=== PATIENT | female | born 1945 | race Asian ===

== ENCOUNTER 2018-05-01 11:43 | Inpatient (IN) | payer MEDICARE ==
[~2018-05-01] VITALS: Ht 160 cm; Wt 61.7 kg
--- NOTE | 2018-05-01 11:54 | Emergency Room Report ---
History of Present Illness General Chief Complaint: Chest Pain Source: Patient, EMS Present Illness HPI Patient is a 73-year-old female presented after intermittent chest pain for 4 days. Patient reports having recent injury. She reports having some increased difficulty breathing. She states that she been having chest tightness. This was relieved after paramedics gave her aspirin and nitroglycerin.She reports having some low back pain as well as right-sided leg pain after recent injury. Allergies: Coded Allergies: No Known Allergies (Unverified , 05/01/18) Patient History Past Medical History: see triage record Last Menstrual Period: N/A Reviewed Nursing Documentation: PMH: Agreed; PSxH: Agreed Nursing Documentation-PMH Past Medical History: No History, Except For Hx Pacemaker: No - HYPERCHOLESTEROLEMIA Review of Systems All Other Systems: negative except mentioned in HPI Physical Exam Vital Signs Date Time Temp Pulse Resp B/P (MAP) Pulse Ox O2 Delivery O2 Flow Rate FiO2 05/01/18 11:43 98.6 82 18 150/94 98 Room Air Sp02 EP Interpretation: reviewed, normal General Appearance: normal inspection, well appearing, no apparent distress, alert, GCS 15 Head: atraumatic ENT: normal ENT inspection, hearing grossly normal, normal voice Neck: normal inspection, full range of motion, supple, no bony tend Respiratory: normal inspection, lungs clear, normal breath sounds, no respiratory distress, no retraction, no wheezing Cardiovascular #1: regular rate, rhythm, no edema Gastrointestinal: normal bowel sounds, non tender, soft, no guarding, no hernia , tenderness - mid epigastric Genitourinary: no CVA tenderness Musculoskeletal: normal inspection, back normal, normal range of motion Neurologic: normal inspection, alert, oriented x3, responsive, cnc technician III-XII nml as tested, speech normal Psychiatric: normal inspection, judgement/insight normal, mood/affect normal Skin: normal inspection, normal color, no rash Medical Decision Making Diagnostic Impression: Primary Impression: Chest pain Additional Impression: ACS (acute coronary syndrome) ER Course Patient presents with chest pain. Differential diagnosis included but was not limited to acute coronary syndrome, pulmonary embolism, pneumonia, aortic dissection, shingles, pneumothorax, aortic dissection, esophageal rupture, pericarditis. Because of complexity of patient's case laboratory testing and imaging studies were ordered. EKG interpreted by me showed normal sinus rhythm without acute ST changes. Patient is noted to have inverted T waves. Patient' s initial laboratory testing was unremarkable. Patient was noted to have been pain-free in the emergency department after aspirin and nitroglycerin by paramedics. Dr. Reynaldo Hartmann was contacted for inpatient management due to panel physician Labs Test 05/01/18 12:03 05/02/18 05:50 05/03/18 05:52 Total Creatine Kinase 54 U/L (26-308) Creatine Kinase MB 0.5 NG/ML (0.0-3.6) Creatine Kinase MB Relative Index 0.9 Pro-B-Type Natriuretic Peptide 85 pg/mL (0-125) Lipase 191 U/L (73-393) Prothrombin Time 10.0 SEC (9.30-11.50) Prothromb Time International Ratio 0.9 (0.9-1.1) Activated Partial Thromboplast Time 27 SEC (23-33) Troponin I 0.000 ng/mL (0.000-0.056) C-Reactive Protein, Quantitative < 0.4 mg/dL (0.00-0.90) Triglycerides Level 62 MG/DL (30-150) Cholesterol Level 156 MG/DL (< 200) LDL Cholesterol 71 mg/dL (<100) HDL Cholesterol 76 MG/DL (40-60) Cholesterol/HDL Ratio 2.1 (3.3-4.4) Thyroid Stimulating Hormone (TSH) 1.669 uiU/mL (0.358-3.740) White Blood Count 5.4 K/UL (4.8-10.8) Red Blood Count 4.30 M/UL (4.20-5.40) Hemoglobin 13.8 G/DL (12.0-16.0) Hematocrit 40.2 % (37.0-47.0) Mean Corpuscular Volume 93 FL (80-99) Mean Corpuscular Hemoglobin 32.0 PG (27.0-31.0) Mean Corpuscular Hemoglobin Concent 34.2 G/DL (32.0-36.0) Red Cell Distribution Width 11.1 % (11.6-14.8) Platelet Count 254 K/UL (150-450) Mean Platelet Volume 6.5 FL (6.5-10.1) Neutrophils (%) (Auto) 42.3 % (45.0-75.0) Lymphocytes (%) (Auto) 44.4 % (20.0-45.0) Monocytes (%) (Auto) 9.4 % (1.0-10.0) Eosinophils (%) (Auto) 2.8 % (0.0-3.0) Basophils (%) (Auto) 1.1 % (0.0-2.0) Sodium Level 140 MMOL/L (136-145) Potassium Level 3.6 MMOL/L (3.5-5.1) Chloride Level 106 MMOL/L (98-107) Carbon Dioxide Level 27 MMOL/L (21-32) Anion Gap 8 mmol/L (5-15) Blood Urea Nitrogen 17 mg/dL (7-18) Creatinine 0.8 MG/DL (0.55-1.30) Estimat Glomerular Filtration Rate mL/min (>60) Glucose Level 84 MG/DL (74-106) Calcium Level 9.4 MG/DL (8.5-10.1) Phosphorus Level 3.8 MG/DL (2.5-4.9) Magnesium Level 2.3 MG/DL (1.8-2.4) Total Bilirubin 0.7 MG/DL (0.2-1.0) Aspartate Amino Transf (AST/SGOT) 18 U/L (15-37) Alanine Aminotransferase (ALT/SGPT) 28 U/L (12-78) Alkaline Phosphatase 63 U/L (46-116) Total Protein 7.2 G/DL (6.4-8.2) Albumin 3.6 G/DL (3.4-5.0) Globulin 3.6 g/dL Albumin/Globulin Ratio 1.0 (1.0-2.7) EKG Diagnostic Results Rate: normal Rhythm: NSR ST Segments: other - t wave inversion precordial leads Rhythm Strip Diag. Results EP Interpretation: yes Rhythm: NSR, no PVC's, no ectopy Chest X-Ray Diagnostic Results Chest X-Ray Diagnostic Results : Chest X-Ray Ordered: Yes # of Views/Limited/Complete: 1 View Indication: Chest Pain EP Interpretation: No Interpretation: no consolidation, no effusion, no acute cardiopulmonary disease Impression: No acute disease Electronically Signed by: Electronically signed by Dr. Darryn Salas M.D. Last Vital Signs Date Time Temp Pulse Resp B/P (MAP) Pulse Ox O2 Delivery O2 Flow Rate FiO2 05/01/18 11:43 98.6 82 18 150/94 98 Room Air Status: improved Disposition: ADMITTED INPATIENT Condition: Stable Darryn Salas MD May 01, 2018 11:54
--- NOTE | 2018-05-01 12:05 | NUR ---
ED Nurse Note: patient was brought in by RA from urgent care, complaining of chest pain for 4 days. AAO x 4, skin is dry intact.
[2018-05-01 12:36] VITALS: BP 125/95
[2018-05-01 12:56] LABS: EOSINOPHILS % (AUTO) 0.8 % (0.0-3.0); HEMATOCRIT 43.7 % (37.0-47.0); HEMOGLOBIN 14.6 G/DL (12.0-16.0); LYMPHOCYTES % (AUTO) 40.6 % (20.0-45.0); MEAN CORPUSCULAR VOLUME 94 FL (80-99); MONOCYTES % (AUTO) 8.5 % (1.0-10.0); NEUTROPHILS % (AUTO) 49.1 % (45.0-75.0); PLATELET COUNT 272 K/UL (150-450); RED BLOOD COUNT 4.65 M/UL (4.20-5.40); WHITE BLOOD COUNT 7.9 K/UL (4.8-10.8)
[2018-05-01 13:02] LABS: ANION GAP 6 mmol/L (5-15); BLOOD UREA NITROGEN 13 mg/dL (7-18); CALCIUM 10.9 MG/DL (8.5-10.1); CARBON DIOXIDE 32 MMOL/L (21-32); CHLORIDE 102 MMOL/L (98-107); CREATININE 0.8 MG/DL (0.55-1.30); SODIUM 140 MMOL/L (136-145)
[2018-05-01 13:11] LABS: ALANINE AMINOTRANSFERASE 34 U/L (12-78); ALBUMIN 4.2 G/DL (3.4-5.0); ALKALINE PHOSPHATASE 79 U/L (46-116); ASPARTATE AMINO TRANSFERASE 24 U/L (15-37); BILIRUBIN,TOTAL 0.7 MG/DL (0.2-1.0); CKMB 0.5 NG/ML (0.0-3.6); CREATINE KINASE 54 U/L (26-308)
[2018-05-01 14:30] VITALS: BP 157/91
--- NOTE | 2018-05-01 14:30 | NUR ---
ED Nurse Note: Patient resting in bed comfortably. Reports no CP, SOB or dyspnea. Provided bedpan. Bed in lowest position.
[2018-05-01] MEDS ORDERED: ATORVASTATIN CA20 MG ORAL (15:23)
[2018-05-01] MEDS ORDERED: CALCIUM500 M3 PO (15:23)
[2018-05-01] MEDS ORDERED: ASPIRIN81 MG ORAL (15:23)
[2018-05-01] MEDS ORDERED: AMLODIPINE BESYL5 MG ORAL (15:23)
--- NOTE | 2018-05-01 16:13 | Diagnostic Imaging Report ---
Indication: Chest pain Technique: One view of the chest Comparison: none Findings: No acute infiltrates, effusions, or congestion. Tortuous calcified aorta. Normal heart size. Upper mediastinum unremarkable. Impression: No acute process.
[2018-05-01] MEDS ORDERED: Nitroglycerin Subl 0.4mg tab SL PRN (16:15)
[2018-05-01] MEDS ORDERED: Enalaprilat 2.5mg/2ml Inj IV PRN (16:15)
[2018-05-01] MEDS ORDERED: dilTIAZem HCl 25mg/5ml Inj IV PRN (16:15)
[2018-05-01] MEDS ORDERED: Ketorolac 30mg Inj IV PRN (16:15)
[2018-05-01] MEDS ORDERED: Miralax 17gm pkt ORAL PRN (16:15)
[2018-05-01] MEDS ORDERED: Morphine Sulfate 2mg/ml Inj(IV/IM USE ONLY) IVP PRN (16:15)
[2018-05-01] MEDS ORDERED: Albuterol/Ipratropium 3ml neb HHN PRN (16:15)
--- NOTE | 2018-05-01 16:20 | NUR ---
ED Nurse Note: Attempted to give report to telemetry unit. Nurse not available at this time.
[2018-05-01 16:40] VITALS: BP 147/92
--- NOTE | 2018-05-01 17:15 | NUR ---
NURSE NOTES: Received report from GABE sousa. Pt is alert and oriented X4. Pt has an unsteady gate due to a fall. Bed is in lowest position, side rails up X2, and call light is within reach. WIll continue to monitor
--- NOTE | 2018-05-01 19:30 | NUR ---
NURSE NOTES: Report received from Amira BERNAL. Pt is resting in bed in stable condition. Pt is awake, alert, and oriented x4. Pt is on room air and breathing is even and unlabored. No acute distress noted. Pt is reporting 3/10 epigastric pain and headache, reporting this as chief complaint for coming to hospital. IV site is asymptomatic, patent, and intact. Bed placed in lowest position with brake engaged, side rails up x3, and bed alarm on. Call light and side table placed within reach. Will continue to monitor.
--- NOTE | 2018-05-01 19:44 | NUR ---
HAND-OFF: Report given to GABE Bates. Pt claudia.
[2018-05-01 20:00] VITALS: BP 112/75
[2018-05-01] MEDS: Heparin 5000 units/ml inj SUBQ SCH (21:00)
[2018-05-02] VITALS: BP 101/62
[2018-05-02 04:00] VITALS: BP 105/65
[2018-05-02 07:08] LABS: INR 0.9 (0.9-1.1)
--- NOTE | 2018-05-02 07:19 | NUR ---
HAND-OFF: Report given to Amira BERNAL. Pt is resting in bed in stable condition. No acute distress noted. Endorsed plan of care.
[2018-05-02 07:23] LABS: BASOPHILS % (AUTO) 1.3 % (0.0-2.0); EOSINOPHILS % (AUTO) 2.3 % (0.0-3.0); HEMATOCRIT 42.2 % (37.0-47.0); HEMOGLOBIN 14.5 G/DL (12.0-16.0); LYMPHOCYTES % (AUTO) 44.5 % (20.0-45.0); MEAN CORPUSCULAR VOLUME 94 FL (80-99); MONOCYTES % (AUTO) 9.9 % (1.0-10.0); NEUTROPHILS % (AUTO) 42.1 % (45.0-75.0); PLATELET COUNT 261 K/UL (150-450); RED CELL DISTRIBUTION WIDTH 11.4 % (11.6-14.8); WHITE BLOOD COUNT 6.1 K/UL (4.8-10.8)
--- NOTE | 2018-05-02 07:34 | NUR ---
NURSE NOTES: Received report from GABE Bates. Bed is in lowest position, side rails up X2, and call light is within reach. Will continue to monitor.
[2018-05-02 07:50] LABS: CHOLESTEROL 156 MG/DL (< 200); HDL CHOLESTEROL 76 MG/DL (40-60); TRIGLYCERIDES 62 MG/DL (30-150)
[2018-05-02 08:00] VITALS: BP 105/60
--- NOTE | 2018-05-02 08:21 | NUR ---
CASE MANAGEMENT:REVIEW 73YR OLD MALE BIBA FROM URGENT CARE CC: CHEST PAIN SI: CHEST PAIN 98.5 82 18 150/94 98% ON RA K-3.0 TROPONIN(-) IS: NTG X1 GIVEN BY EMS ASA PO X1 GIVEN BY EMS KCL 40MEQ CHEST XRAY : TO TELEMETRY PLAN: SERIAL TROPONIN 2DECHO PT EVAL INTERQUAL
[2018-05-02] MEDS: Heparin 5000 units/ml inj SUBQ SCH ×2 (09:00→21:00)
[2018-05-02] MEDS: Aspirin Baby 81mg ORAL SCH (09:16)
[2018-05-02 12:00] VITALS: BP 142/90
--- NOTE | 2018-05-02 13:05 | NUR ---
NURSE NOTES: Received report from GABE Collier. Patient is awake and oriented x4. No signs and symptoms of acute distress noted at this time. No SOB ion room air. Bed in lowest position with two side rails up, break engaged. Call light and bed side table within reach. Will continue to monitor and follow the plan of care.
--- NOTE | 2018-05-02 13:30 | NUR ---
NURSE NOTES: Doctor Shahbaz is aware of low Potassium level.
[2018-05-02] MEDS ORDERED: Isovue-300 100ml vial INJ PRN (14:00)
--- NOTE | 2018-05-02 14:00 | NUR ---
P.T Note: P.T evaluation completed and treatment initiated. Please refer to P.T evaluation for current functional status. Pt reports c/o increased pain on her R knee aggravated by movement and WB which limits her mobility and ambulation ability. Pt currently require SBA and verbal cues for bed mobility , transfers and gait/ambulation activities . Pt also needed FWW to alleviate pain and antalgia on her R knee upon WB and maintain ambulatory balance and posture as well as safety. Pt will benefit from skilled P.T service to address safety with transfers and gait/ambulation activities for return to PLOF. Recommend DC to home with FWW to use at home for safety until pain on the R knee subsides and patient becomes stable. Thank you for this referral.
--- NOTE | 2018-05-02 14:05 | History & Physical ---
History and Physical History & Physicial Reynaldo Hartmann MD May 02, 2018 14:05
--- NOTE | 2018-05-02 14:12 | Cardiac Electrophysiology PN ---
Subjective Subjective [id number] Objective Last 24 Hour Vital Signs Date Time Temp Pulse Resp B/P (MAP) Pulse Ox O2 Delivery O2 Flow Rate FiO2 05/02/18 12:00 82 05/02/18 12:00 98.2 76 18 142/90 (107) 100 05/02/18 09:00 Room Air 05/02/18 09:00 72 105/60 05/02/18 08:08 72 19 Room Air 21 05/02/18 08:00 72 05/02/18 08:00 97.9 72 19 105/60 (75) 98 05/02/18 04:00 61 05/02/18 04:00 98.2 63 18 105/65 (78) 96 05/02/18 00:00 97.8 67 18 101/62 (75) 98 05/02/18 00:00 66 05/01/18 21:00 Room Air 05/01/18 20:00 97.2 74 18 112/75 (87) 97 05/01/18 20:00 78 05/01/18 18:46 Room Air 05/01/18 17:22 97.0 82 15 137/93 97 Room Air 05/01/18 16:40 98.3 77 18 147/92 100 Room Air 05/01/18 14:30 82 16 157/91 99 Intake and Output 05/01/18 05/02/18 19:00 07:00 Intake Total 120 ml Balance 120 ml Intake Oral 120 ml # Voids 1 1 # Bowel Movements 1 Laboratory Tests Test 05/01/18 19:30 05/02/18 05:50 Troponin I 0.000 ng/mL (0.000-0.056) 0.000 ng/mL (0.000-0.056) White Blood Count 6.1 K/UL (4.8-10.8) Red Blood Count 4.50 M/UL (4.20-5.40) Hemoglobin 14.5 G/DL (12.0-16.0) Hematocrit 42.2 % (37.0-47.0) Mean Corpuscular Volume 94 FL (80-99) Mean Corpuscular Hemoglobin 32.2 PG (27.0-31.0) H Mean Corpuscular Hemoglobin Concent 34.3 G/DL (32.0-36.0) Red Cell Distribution Width 11.4 % (11.6-14.8) L Platelet Count 261 K/UL (150-450) Mean Platelet Volume 6.7 FL (6.5-10.1) Neutrophils (%) (Auto) 42.1 % (45.0-75.0) L Lymphocytes (%) (Auto) 44.5 % (20.0-45.0) Monocytes (%) (Auto) 9.9 % (1.0-10.0) Eosinophils (%) (Auto) 2.3 % (0.0-3.0) Basophils (%) (Auto) 1.3 % (0.0-2.0) Prothrombin Time 10.0 SEC (9.30-11.50) Prothromb Time International Ratio 0.9 (0.9-1.1) Activated Partial Thromboplast Time 27 SEC (23-33) C-Reactive Protein, Quantitative < 0.4 mg/dL (0.00-0.90) Triglycerides Level 62 MG/DL (30-150) Cholesterol Level 156 MG/DL (< 200) LDL Cholesterol 71 mg/dL (<100) HDL Cholesterol 76 MG/DL (40-60) H Cholesterol/HDL Ratio 2.1 (3.3-4.4) L Thyroid Stimulating Hormone (TSH) 1.669 uiU/mL (0.358-3.740) Jose Luis Ennis MD May 02, 2018 14:12
--- NOTE | 2018-05-02 15:05 | Consultation ---
History of Present Illness General Date patient seen: May 02, 2018 Chief Complaint: Chest Pain Present Illness HPI 73-year-old female with hx of HTN, hypercholestrolemia presented to ER with CC of intermittent chest pain for 4 days and chest tightness as well. She was found to have abnormal EKG and admitted to telemetry for further management. Allergies: Coded Allergies: No Known Allergies (Unverified , 05/01/18) Medication History Scheduled Amlodipine Besylate* (Amlodipine Besylate*), 5 MG ORAL DAILY, (Reported) Aspirin* (Aspirin*), 81 MG ORAL DAILY, (Reported) Atorvastatin Calcium* (Atorvastatin Calcium*), 20 MG ORAL BEDTIME, (Reported) Miscellaneous Medications Calcium Carbonate (Calcium), 500 MG PO, (Reported) Patient History Healthcare decision maker N Resuscitation status Full Code Advanced Directive on File Past Medical/Surgical History Past Medical/Surgical History: (1) GERD (gastroesophageal reflux disease) (2) Costochondritis (3) History of hypertension Review of Systems All Other Systems: negative except mentioned in HPI Physical Exam General Appearance: WD/WN, no apparent distress Lines, tubes and drains: peripheral HEENT: normocephalic, atraumatic Neck: non-tender, normal alignment Respiratory/Chest: chest wall non-tender, lungs clear Breasts: no masses Cardiovascular/Chest: normal peripheral pulses Abdomen: normal bowel sounds, non tender Genitourinary/Rectal: normal genital exam Extremities: normal range of motion Last 24 Hour Vital Signs Date Time Temp Pulse Resp B/P (MAP) Pulse Ox O2 Delivery O2 Flow Rate FiO2 05/02/18 12:00 82 05/02/18 12:00 98.2 76 18 142/90 (107) 100 05/02/18 09:00 Room Air 05/02/18 09:00 72 105/60 05/02/18 08:08 72 19 Room Air 21 05/02/18 08:00 72 05/02/18 08:00 97.9 72 19 105/60 (75) 98 05/02/18 04:00 61 05/02/18 04:00 98.2 63 18 105/65 (78) 96 05/02/18 00:00 97.8 67 18 101/62 (75) 98 05/02/18 00:00 66 05/01/18 21:00 Room Air 05/01/18 20:00 97.2 74 18 112/75 (87) 97 05/01/18 20:00 78 05/01/18 18:46 Room Air 05/01/18 17:22 97.0 82 15 137/93 97 Room Air 05/01/18 16:40 98.3 77 18 147/92 100 Room Air Intake and Output 05/01/18 05/02/18 19:00 07:00 Intake Total 120 ml Balance 120 ml Intake Oral 120 ml # Voids 1 1 # Bowel Movements 1 Laboratory Tests Test 05/01/18 19:30 05/02/18 05:50 Troponin I 0.000 ng/mL (0.000-0.056) 0.000 ng/mL (0.000-0.056) White Blood Count 6.1 K/UL (4.8-10.8) Red Blood Count 4.50 M/UL (4.20-5.40) Hemoglobin 14.5 G/DL (12.0-16.0) Hematocrit 42.2 % (37.0-47.0) Mean Corpuscular Volume 94 FL (80-99) Mean Corpuscular Hemoglobin 32.2 PG (27.0-31.0) H Mean Corpuscular Hemoglobin Concent 34.3 G/DL (32.0-36.0) Red Cell Distribution Width 11.4 % (11.6-14.8) L Platelet Count 261 K/UL (150-450) Mean Platelet Volume 6.7 FL (6.5-10.1) Neutrophils (%) (Auto) 42.1 % (45.0-75.0) L Lymphocytes (%) (Auto) 44.5 % (20.0-45.0) Monocytes (%) (Auto) 9.9 % (1.0-10.0) Eosinophils (%) (Auto) 2.3 % (0.0-3.0) Basophils (%) (Auto) 1.3 % (0.0-2.0) Prothrombin Time 10.0 SEC (9.30-11.50) Prothromb Time International Ratio 0.9 (0.9-1.1) Activated Partial Thromboplast Time 27 SEC (23-33) C-Reactive Protein, Quantitative < 0.4 mg/dL (0.00-0.90) Triglycerides Level 62 MG/DL (30-150) Cholesterol Level 156 MG/DL (< 200) LDL Cholesterol 71 mg/dL (<100) HDL Cholesterol 76 MG/DL (40-60) H Cholesterol/HDL Ratio 2.1 (3.3-4.4) L Thyroid Stimulating Hormone (TSH) 1.669 uiU/mL (0.358-3.740) Height (Feet): 5 Height (Inches): 3.00 Weight (Pounds): 136 Medications Current Medications Medications (Trade) Dose Ordered Sig/Sabiha Route PRN Reason Start Time Stop Time Status Last Admin Dose Admin Acetaminophen (Tylenol) 650 mg Q4H PRN ORAL FEVER 05/01/18 16:15 05/31/18 16:14 Albuterol/ Ipratropium (Albuterol/ Ipratropium) 3 ml Q4H PRN HHN Shortness of Breath 05/01/18 16:15 05/06/18 16:14 Amlodipine Besylate (Norvasc) 5 mg DAILY ORAL 05/02/18 09:00 06/01/18 08:59 Aspirin (ASA) 162 mg DAILY ORAL 05/02/18 09:00 06/01/18 08:59 05/02/18 09:16 Barium Sulfate (Readi-Cat 2) 450 ml NOW PRN ORAL Radiology Procedure 05/02/18 14:00 05/04/18 13:54 Diltiazem HCl (Cardizem) 10 mg Q1H PRN IV heart rate more than 120, 05/01/18 16:15 05/31/18 16:14 Enalaprilat (Vasotec) 2.5 mg Q6H PRN IV sbp more than 160 05/01/18 16:15 05/31/18 16:14 Heparin Sodium (Porcine) (Heparin 5000 units/ml) 5,000 units EVERY 12 HOURS SUBQ 05/01/18 21:00 05/31/18 20:59 Iopamidol (Isovue-300 100ml) 100 ml NOW PRN INJ Radiology Procedure 05/02/18 14:00 05/04/18 13:54 Ketorolac Tromethamine (Toradol 30mg) 30 mg Q6H PRN IV moderate pain ( 4-6) 05/01/18 16:15 05/06/18 16:14 Morphine Sulfate (Morphine Sulfate) 2 mg Q4H PRN IVP severe Pain (Pain Scale 7-10) 05/01/18 16:15 05/08/18 16:14 Nitroglycerin (Ntg) 0.4 mg Q5M PRN SL Prn Chest Pain 05/01/18 16:15 05/31/18 16:14 Ondansetron HCl (Zofran) 4 mg Q6H PRN IVP Nausea & Vomiting 05/01/18 16:15 05/31/18 16:14 Polyethylene Glycol (Miralax) 17 gm DAILYPRN PRN ORAL Constipation 05/01/18 16:15 05/31/18 16:14 Regadenoson (Lexiscan) 0.4 mg ONCE PRN IV stress test 05/05/18 09:00 05/05/18 18:00 Temazepam (Restoril) 15 mg HSPRN PRN ORAL Insomnia 05/01/18 16:15 05/08/18 16:14 Assessment/Plan Problem List: (1) ACS (acute coronary syndrome) ICD Codes: I24.9 - Acute ischemic heart disease, unspecified SNOMED: 807933770 (2) Costochondritis ICD Codes: M94.0 - Chondrocostal junction syndrome [Tietze] SNOMED: 90151136 (3) GERD (gastroesophageal reflux disease) ICD Codes: K21.9 - Gastro-esophageal reflux disease without esophagitis SNOMED: 220924469 (4) History of hypertension ICD Codes: Z86.79 - Personal history of other diseases of the circulatory system SNOMED: 308982472 Assessment/Plan serial ekg, troponin echo cardiology consult symptomatic treatment monitor BP check lipids and cholesterol dvt prophylaxis. Sharee Patrick MD May 02, 2018 15:05
[2018-05-02 16:00] VITALS: BP 150/94
--- NOTE | 2018-05-02 18:00 | Consultation ---
DATE OF CONSULTATION: 05/02/2018 CONSULTING PHYSICIAN: Fiorella Chiu M.D. REASON FOR CONSULTATION: Skin check. HISTORY OF PRESENT ILLNESS: This is an otherwise healthy 73-year-old woman who was admitted to the emergency room with some chest pain and also leg pain. The patient also reported that she has some upper abdominal epigastric discomfort with small bulge that she could palpate. PAST MEDICAL HISTORY: None. MEDICATIONS: Amlodipine, aspirin, subcutaneous heparin, albuterol, Toradol, MiraLAX, Zofran, Restoril, Vasotec, and diltiazem. FAMILY HISTORY: N/A. SOCIAL HISTORY: The patient reports she does not smoke or drink. REVIEW OF SYSTEMS: CONSTITUTIONAL: The patient denies weight loss or weight gain. The patient denies fevers or chills. HEENT: The patient has no throat pain or ear pain or headache. CARDIOVASCULAR: The patient previously had chest pain and tightness, she currently denies any. CHEST: The patient currently does not have any shortness of breath. ABDOMEN: The patient has focal area of abdominal pain on palpation. NEUROVASCULAR: The patient has no weakness. PHYSICAL EXAMINATION: VITAL SIGNS: The patient is afebrile with normal vitals. GENERAL: She is well-developed and well-nourished, in no acute distress. HEENT: Pupils are equal and responsive to light. NECK: Supple. No lymphadenopathy. CARDIOVASCULAR: Regular rate and rhythm. EXTREMITIES: The patient had full range of motion. She had an ice pack on her right knee without any signs of redness or swelling. ABDOMEN: The patient's abdomen is soft, nontender, and nondistended. In the upper epigastric area, there was an area about 2 cm in diameter of tenderness. I did not palpate any obvious hernia. ASSESSMENT: This is a 73-year-old woman with recent ER admission for chest pain. On exam, the patient has good range of motion. RECOMMENDATIONS: I recommend moisturizing her skin daily and nutritional consult to ensure adequate nutritional needs. Also for her abdominal discomfort, I discussed with the patient, she could possibly have a small hernia and this could be evaluated as an outpatient with an ultrasound to examine the abdominal wall. Fiorella Chiu M.D. DR: CELINA JOB#: [id number] CC: JOSE ANTONIO
--- NOTE | 2018-05-02 18:30 | History and Physical Report ---
DATE OF ADMISSION: 05/01/2018 CHIEF COMPLAINT: Chest pain and epigastric pain. HISTORY OF PRESENT ILLNESS: This is a 73-year-old female with a past medical history significant for hypertension, dyslipidemia, history of appendectomy, , hysterectomy, and hemorrhoidectomy, who has presented to the emergency room complaining about chest pain. The patient has had chest pain mostly in the retrosternal area radiated to the jaw area. She states that the pain is retrosternal and epigastric. It has been going on for 4 to 5 days, but it was progressively worsening. The patient stated that about 2 weeks ago, she fell while she was at work and sustained injury to right knee. [facility] and was noted to have chest pain with elevated blood pressure and then subsequently, the patient was advised to come to the emergency room. Shortly after initial evaluation in the emergency room, the patient was admitted to the hospital with chest pain, epigastric pain, possible acute coronary syndrome versus gastrointestinal etiology. PAST MEDICAL HISTORY/PAST SURGICAL HISTORY: As above. History of hypertension, dyslipidemia, appendectomy, x2, hysterectomy, and hemorrhoidectomy. MEDICATIONS AT HOME: Please refer to medication reconciliation. ALLERGIES: No known drug allergies. SOCIAL HISTORY: Denies any smoking, alcohol, or drugs. 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 FAMILY HISTORY: Diabetes, high blood pressure, and heart disease runs in the family, both maternal and paternal sides and her sibling. REVIEW OF SYSTEMS: Mostly as above. Denies any dysuria, frequency, or hematuria. Denies any hemoptysis or hematochezia. Denies any suicidal or homicidal ideation. Complained about the chest pain mostly on deep inspiration. Denies any loss of consciousness. Denies any suicidal or homicidal ideation. Denies any loss of consciousness. PHYSICAL EXAMINATION: VITAL SIGNS: On admission, the patient's temperature is 98.6, pulse of 82, respirations 18, and blood pressure 150/94. GENERAL: The patient is awake and responsive, in no acute distress. HEAD AND NECK: Pupils are reactive to light. Extraocular movements intact. NECK: Supple. No JVD. LUNGS: Good air entry. No wheezing or rales. HEART: Reveals S1 and S2. Regular rhythm. No gallop. ABDOMEN: Soft, nondistended, and nontender. Epigastric tenderness. There was a nodule felt on the epigastric area. No rebound tenderness. No fluid shift. No ascites. EXTREMITIES: No cyanosis, clubbing, or edema. Right knee was noted to have ecchymosis. NEUROLOGIC: LIFE SCIENCE TAXONOMIST II through XII grossly intact. Motor is 5/5 in all extremities. Gait is intact. RECTAL: Refused and deferred. GENITOURINARY: Refused and deferred. PSYCHIATRIC: Mood and affect is intact. LABORATORY AND DIAGNOSTIC DATA: On admission from the ER, WBC of 7.9, hemoglobin 14, hematocrit 43, and platelets is 272,000. Sodium 140, potassium 3.0, chloride 102, bicarbonate 32, BUN 13, and creatinine 0.8. First, second and third troponin, all 0.00. CRP is less than 0.4. The patient's cholesterol is 156, LDL 71, and HDL is 76. TSH is 1.669. Lipase is 191. PT of 10, INR 0.9, and PTT of 27. Chest x-ray, no acute cardiopulmonary disease. ASSESSMENT: 1. Chest pain, possible acute coronary syndrome. 2. Epigastric pain with epigastric nodules. 3. Hypertension. 4. Dyslipidemia. 5. Recent right knee injury. PLAN: 1. Admit the patient to telemetry. 2. We will follow up with Dr. Patrick from Pulmonary Critical Care, Dr. Hector Benoit from Gastroenterology, and Dr. Ennis from Cardiology Electrophysiology. 3. We will follow up with the laboratory. 4. Consider CT scan of the abdomen. 5. Code status is Full Code. 6. DVT prophylaxis with heparin subcutaneous. 7. We will continue home medication. Reynaldo Hartmann M.D. DR: CARMELLA JOB#: [id number] CC:
--- NOTE | 2018-05-02 19:12 | NUR ---
HAND-OFF: Report given to GABE Bates.
--- NOTE | 2018-05-02 19:30 | NUR ---
NURSE NOTES: Report received from Javier BERNAL. Pt is resting in bed in stable condition. Pt is awake, alert, and oriented x4. Pt is on room air and breathing is even and unlabored. No acute distress noted. IV site is L AC #20g and is asymptomatic, patent, and intact. Bed placed in lowest position with brake engaged, side rails up x3, and bed alarm on. Call light and side table placed within reach. Will continue to monitor.
--- NOTE | 2018-05-02 19:44 | NUR ---
NURSE NOTES: MD Benoit at bedside. Per , pending results of CT abdominal/pelvis scan with contrast in AM.
--- NOTE | 2018-05-02 19:54 | NUR ---
NURSE NOTES: MD Benoit notified of low potassium result from 05/01/18. Per MD, order STAT BMP and call w/ result.
[2018-05-02 20:00] VITALS: BP 134/86
[2018-05-02 21:25] LABS: ANION GAP 8 mmol/L (5-15); BLOOD UREA NITROGEN 21 mg/dL (7-18); CALCIUM 9.3 MG/DL (8.5-10.1); CARBON DIOXIDE 31 MMOL/L (21-32); CHLORIDE 102 MMOL/L (98-107); CREATININE 0.9 MG/DL (0.55-1.30); POTASSIUM 3.8 MMOL/L (3.5-5.1); SODIUM 140 MMOL/L (136-145)
--- NOTE | 2018-05-02 21:44 | NUR ---
NURSE NOTES: Pt potassium result is 3.8, WNL. MD Benoit notified of results. No new orders at this time.
--- NOTE | 2018-05-02 21:58 | General Progress Note ---
Subjective Allergies: Coded Allergies: No Known Allergies (Unverified , 05/01/18) Objective Last 24 Hour Vital Signs Date Time Temp Pulse Resp B/P (MAP) Pulse Ox O2 Delivery O2 Flow Rate FiO2 05/02/18 19:34 77 18 Room Air 21 05/02/18 16:00 97.9 77 20 150/94 (112) 98 05/02/18 16:00 82 05/02/18 12:00 82 05/02/18 12:00 98.2 76 18 142/90 (107) 100 05/02/18 09:00 Room Air 05/02/18 09:00 72 105/60 05/02/18 08:08 72 19 Room Air 21 05/02/18 08:00 72 05/02/18 08:00 97.9 72 19 105/60 (75) 98 05/02/18 04:00 61 05/02/18 04:00 98.2 63 18 105/65 (78) 96 05/02/18 00:00 97.8 67 18 101/62 (75) 98 05/02/18 00:00 66 Intake and Output 05/01/18 05/02/18 19:00 07:00 Intake Total 120 ml Balance 120 ml Intake Oral 120 ml # Voids 1 1 # Bowel Movements 1 Laboratory Tests 05/02/18 05:50: White Blood Count 6.1, Red Blood Count 4.50, Hemoglobin 14.5, Hematocrit 42.2, Mean Corpuscular Volume 94, Mean Corpuscular Hemoglobin 32.2H, Mean Corpuscular Hemoglobin Concent 34.3, Red Cell Distribution Width 11.4L, Platelet Count 261, Mean Platelet Volume 6.7, Neutrophils (%) (Auto) 42.1L, Lymphocytes (%) (Auto) 44.5, Monocytes (%) (Auto) 9.9, Eosinophils (%) (Auto) 2.3, Basophils (%) (Auto ) 1.3, Prothrombin Time 10.0, Prothromb Time International Ratio 0.9, Activated Partial Thromboplast Time 27, Troponin I 0.000, C-Reactive Protein, Quantitative < 0.4, Triglycerides Level 62, Cholesterol Level 156, LDL Cholesterol 71, HDL Cholesterol 76H, Cholesterol/HDL Ratio 2.1L, Thyroid Stimulating Hormone (TSH) 1.669 05/02/18 21:00: Sodium Level 140, Potassium Level 3.8, Chloride Level 102, Carbon Dioxide Level 31, Anion Gap 8, Blood Urea Nitrogen 21H, Creatinine 0.9, Estimat Glomerular Filtration Rate , Glucose Level 87, Calcium Level 9.3 Height (Feet): 5 Height (Inches): 3.00 Weight (Pounds): 136 Hector Benoit MD May 02, 2018 21:58
[2018-05-03] VITALS: BP 115/79
[2018-05-03 04:00] VITALS: BP 133/83
--- NOTE | 2018-05-03 07:13 | NUR ---
HAND-OFF: Report given to Javier Cartagena RN. Pt is resting in bed in stable condition. No acute distress noted. Endorsed plan of care.
--- NOTE | 2018-05-03 07:14 | NUR ---
NURSE NOTES: Report received from Jana BERNAL. Pt is resting in bed, semi-gambino position and in stable condition. Pt is awake, alert, and oriented x4. Pt is on room air and breathing is even and unlabored. No acute distress noted at this time. Bed placed in lowest position with brake engaged, side rails up x2, and Call light and side table placed within reach. Patient is on NPO status due to CT abdomen with contrast. Will continue to monitor and follow plan of care.
--- NOTE | 2018-05-03 07:45 | General Progress Note ---
Assessment/Plan Problem List: (1) History of hypertension ICD Codes: Z86.79 - Personal history of other diseases of the circulatory system SNOMED: 615664100 (2) GERD (gastroesophageal reflux disease) ICD Codes: K21.9 - Gastro-esophageal reflux disease without esophagitis SNOMED: 601553715 (3) Chest pain ICD Codes: R07.9 - Chest pain, unspecified SNOMED: 42562104 Assessment/Plan add protonix pending abd CT pending stress test will fu Subjective ROS Limited/Unobtainable: Yes Allergies: Coded Allergies: No Known Allergies (Unverified , 05/01/18) Subjective no event Objective Last 24 Hour Vital Signs Date Time Temp Pulse Resp B/P (MAP) Pulse Ox O2 Delivery O2 Flow Rate FiO2 05/03/18 04:00 62 05/03/18 04:00 98.1 66 18 133/83 (100) 99 05/03/18 00:00 68 05/03/18 00:00 97.7 68 20 115/79 (91) 97 05/02/18 21:00 Room Air 05/02/18 20:00 82 05/02/18 20:00 98.8 73 20 134/86 (102) 98 05/02/18 19:34 77 18 Room Air 21 05/02/18 16:00 97.9 77 20 150/94 (112) 98 05/02/18 16:00 82 05/02/18 12:00 82 05/02/18 12:00 98.2 76 18 142/90 (107) 100 05/02/18 09:00 Room Air 05/02/18 09:00 72 105/60 05/02/18 08:08 72 19 Room Air 21 05/02/18 08:00 72 05/02/18 08:00 97.9 72 19 105/60 (75) 98 Intake and Output 05/02/18 05/03/18 18:59 06:59 Intake Total 420 ml 120 ml Balance 420 ml 120 ml Intake Oral 420 ml 120 ml # Voids 4 2 Laboratory Tests 05/02/18 21:00: Sodium Level 140, Potassium Level 3.8, Chloride Level 102, Carbon Dioxide Level 31, Anion Gap 8, Blood Urea Nitrogen 21H, Creatinine 0.9, Estimat Glomerular Filtration Rate , Glucose Level 87, Calcium Level 9.3 Height (Feet): 5 Height (Inches): 3.00 Weight (Pounds): 136 General Appearance: alert EENT: normal ENT inspection Neck: supple Cardiovascular: normal rate Respiratory/Chest: lungs clear Abdomen: normal bowel sounds, non tender, soft Extremities: non-tender Richard Adams MD May 03, 2018 07:44
[2018-05-03 08:00] VITALS: BP 144/83
[2018-05-03] MEDS: Aspirin Baby 81mg ORAL SCH (08:16)
[2018-05-03] MEDS: Heparin 5000 units/ml inj SUBQ SCH ×2 (08:18→21:00)
[2018-05-03 08:31] LABS: BASOPHILS % (AUTO) 1.1 % (0.0-2.0); EOSINOPHILS % (AUTO) 2.8 % (0.0-3.0); HEMATOCRIT 40.2 % (37.0-47.0); HEMOGLOBIN 13.8 G/DL (12.0-16.0); LYMPHOCYTES % (AUTO) 44.4 % (20.0-45.0); MEAN CORPUSCULAR VOLUME 93 FL (80-99); MONOCYTES % (AUTO) 9.4 % (1.0-10.0); NEUTROPHILS % (AUTO) 42.3 % (45.0-75.0); PLATELET COUNT 254 K/UL (150-450); RED CELL DISTRIBUTION WIDTH 11.1 % (11.6-14.8); WHITE BLOOD COUNT 5.4 K/UL (4.8-10.8)
[2018-05-03 09:23] LABS: ALANINE AMINOTRANSFERASE 28 U/L (12-78); ALBUMIN 3.6 G/DL (3.4-5.0); ALKALINE PHOSPHATASE 63 U/L (46-116); ANION GAP 8 mmol/L (5-15); ASPARTATE AMINO TRANSFERASE 18 U/L (15-37); BILIRUBIN,TOTAL 0.7 MG/DL (0.2-1.0); BLOOD UREA NITROGEN 17 mg/dL (7-18); CALCIUM 9.4 MG/DL (8.5-10.1); CARBON DIOXIDE 27 MMOL/L (21-32); CHLORIDE 106 MMOL/L (98-107); CREATININE 0.8 MG/DL (0.55-1.30); PHOSPHORUS 3.8 MG/DL (2.5-4.9); POTASSIUM 3.6 MMOL/L (3.5-5.1); SODIUM 140 MMOL/L (136-145)
--- NOTE | 2018-05-03 10:52 | Pulmonology Progress Note ---
Assessment/Plan Problems: (1) ACS (acute coronary syndrome) (2) Costochondritis (3) GERD (gastroesophageal reflux disease) (4) History of hypertension Assessment/Plan stress test pending symptomatic treatment CT of abdomen pending monitor BP keep in teli dvt prophylaxis. Subjective ROS Limited/Unobtainable: No Interval Events: no new complains, d/w son on the phone Allergies: Coded Allergies: No Known Allergies (Unverified , 05/01/18) Objective Last 24 Hour Vital Signs Date Time Temp Pulse Resp B/P (MAP) Pulse Ox O2 Delivery O2 Flow Rate FiO2 05/03/18 09:00 Room Air 05/03/18 08:16 65 144/83 05/03/18 08:00 97.6 65 18 144/83 (103) 97 05/03/18 04:00 62 05/03/18 04:00 98.1 66 18 133/83 (100) 99 05/03/18 00:00 68 05/03/18 00:00 97.7 68 20 115/79 (91) 97 05/02/18 21:00 Room Air 05/02/18 20:00 82 05/02/18 20:00 98.8 73 20 134/86 (102) 98 05/02/18 19:34 77 18 Room Air 21 05/02/18 16:00 97.9 77 20 150/94 (112) 98 05/02/18 16:00 82 05/02/18 12:00 82 05/02/18 12:00 98.2 76 18 142/90 (107) 100 Intake and Output 05/02/18 05/03/18 19:00 07:00 Intake Total 420 ml 120 ml Balance 420 ml 120 ml Intake Oral 420 ml 120 ml # Voids 4 2 General Appearance: WD/WN HEENT: normocephalic, atraumatic Respiratory/Chest: chest wall non-tender, lungs clear Breasts: no masses Cardiovascular: normal peripheral pulses Abdomen: normal bowel sounds Genitourinary: normal external genitalia Extremities: no cyanosis Skin: no rash Neurologic/Psychiatric: leadership intern II-XII grossly normal Lymphatic: no neck adenopathy Laboratory Tests 05/02/18 21:00: Sodium Level 140, Potassium Level 3.8, Chloride Level 102, Carbon Dioxide Level 31, Anion Gap 8, Blood Urea Nitrogen 21H, Creatinine 0.9, Estimat Glomerular Filtration Rate , Glucose Level 87, Calcium Level 9.3 05/03/18 05:52: Sodium Level 140, Potassium Level 3.6, Chloride Level 106, Carbon Dioxide Level 27, Anion Gap 8, Blood Urea Nitrogen 17, Creatinine 0.8, Estimat Glomerular Filtration Rate , Glucose Level 84, Calcium Level 9.4, White Blood Count 5.4, Red Blood Count 4.30, Hemoglobin 13.8, Hematocrit 40.2, Mean Corpuscular Volume 93, Mean Corpuscular Hemoglobin 32.0H, Mean Corpuscular Hemoglobin Concent 34.2 , Red Cell Distribution Width 11.1L, Platelet Count 254, Mean Platelet Volume 6.5, Neutrophils (%) (Auto) 42.3L, Lymphocytes (%) (Auto) 44.4, Monocytes (%) ( Auto) 9.4, Eosinophils (%) (Auto) 2.8, Basophils (%) (Auto) 1.1, Phosphorus Level 3.8, Magnesium Level 2.3, Total Bilirubin 0.7, Aspartate Amino Transf (AST /SGOT) 18, Alanine Aminotransferase (ALT/SGPT) 28, Alkaline Phosphatase 63, Total Protein 7.2, Albumin 3.6, Globulin 3.6, Albumin/Globulin Ratio 1.0 Current Medications Medications (Trade) Dose Ordered Sig/Sabiha Route PRN Reason Start Time Stop Time Status Last Admin Dose Admin Acetaminophen (Tylenol) 650 mg Q4H PRN ORAL FEVER 05/01/18 16:15 05/31/18 16:14 Albuterol/ Ipratropium (Albuterol/ Ipratropium) 3 ml Q4H PRN HHN Shortness of Breath 05/01/18 16:15 05/06/18 16:14 Amlodipine Besylate (Norvasc) 5 mg DAILY ORAL 05/02/18 09:00 06/01/18 08:59 05/03/18 08:16 Aspirin (ASA) 162 mg DAILY ORAL 05/02/18 09:00 06/01/18 08:59 05/03/18 08:16 Barium Sulfate (Readi-Cat 2) 450 ml NOW PRN ORAL Radiology Procedure 05/02/18 14:00 05/04/18 13:54 Diltiazem HCl (Cardizem) 10 mg Q1H PRN IV heart rate more than 120, 05/01/18 16:15 05/31/18 16:14 Enalaprilat (Vasotec) 2.5 mg Q6H PRN IV sbp more than 160 05/01/18 16:15 05/31/18 16:14 Heparin Sodium (Porcine) (Heparin 5000 units/ml) 5,000 units EVERY 12 HOURS SUBQ 05/01/18 21:00 05/31/18 20:59 Iopamidol (Isovue-300 100ml) 100 ml NOW PRN INJ Radiology Procedure 05/02/18 14:00 05/04/18 13:54 Ketorolac Tromethamine (Toradol 30mg) 30 mg Q6H PRN IV moderate pain ( 4-6) 05/01/18 16:15 05/06/18 16:14 Morphine Sulfate (Morphine Sulfate) 2 mg Q4H PRN IVP severe Pain (Pain Scale 7-10) 05/01/18 16:15 05/08/18 16:14 Nitroglycerin (Ntg) 0.4 mg Q5M PRN SL Prn Chest Pain 05/01/18 16:15 05/31/18 16:14 Ondansetron HCl (Zofran) 4 mg Q6H PRN IVP Nausea & Vomiting 05/01/18 16:15 05/31/18 16:14 Pantoprazole (Protonix) 40 mg EVERY 12 HOURS ORAL 05/03/18 09:00 06/02/18 08:59 05/03/18 08:16 Polyethylene Glycol (Miralax) 17 gm DAILYPRN PRN ORAL Constipation 05/01/18 16:15 05/31/18 16:14 Regadenoson (Lexiscan) 0.4 mg ONCE PRN IV stress test 05/05/18 09:00 05/05/18 18:00 Temazepam (Restoril) 15 mg HSPRN PRN ORAL Insomnia 05/01/18 16:15 05/08/18 16:14 Sharee Patrick MD May 03, 2018 10:52
[2018-05-03 12:01] VITALS: BP 134/74
[2018-05-03] MEDS ORDERED: Isovue-300 100ml vial INJ PRN (13:00)
--- NOTE | 2018-05-03 14:55 | NUR ---
PT Note Attempted to see patient for treatment but patient went for a procedure.
--- NOTE | 2018-05-03 15:05 | Diagnostic Imaging Report ---
EXAM: CT Abdomen and Pelvis With Intravenous Contrast CLINICAL HISTORY: ABD TEND TECHNIQUE: Axial computed tomography images of the abdomen and pelvis with intravenous contrast. CTDI is 14 mGy and DLP is 651 mGy-cm. One or more of the following dose reduction techniques were used: automated exposure control, adjustment of the mA and/or kV according to patient size, use of iterative reconstruction technique. Oral contrast was administered. Coronal and sagittal reformatted images were created and reviewed. COMPARISON: No relevant prior studies available. FINDINGS: Lung bases: Mild dependent atelectasis in bilateral lung bases. ABDOMEN: Liver: Scattered subcentimeter hepatic hypodensities, likely simple cysts. Largest hypodensity measures 1.2 cm in the posterior right hepatic lobe near the dome (series 3 image 12). Gallbladder and bile ducts: Unremarkable. No calcified stones. No ductal dilation. Pancreas: Unremarkable. No mass. No ductal dilation. Spleen: Unremarkable. No splenomegaly. Adrenals: Unremarkable. No mass. Kidneys and ureters: Simple-appearing renal cortical cysts, largest measuring 10 mm in the right mid kidney. The kidneys otherwise appear unremarkable. No hydronephrosis or hydroureter. Stomach and bowel: Unremarkable. No obstruction. No mucosal thickening. PELVIS: Appendix: No findings to suggest acute appendicitis. Bladder: Unremarkable. No visible stones. Reproductive: The uterus and ovaries are not visualized and may be surgically absent. ABDOMEN and PELVIS: Intraperitoneal space: Unremarkable. No free air. No significant fluid collection. Bones/joints: Mild multilevel degenerative changes throughout the visualized spine with disc space loss, most prominent at L4-5. No acute fracture. No dislocation. Soft tissues: Unremarkable. Vasculature: Atherosclerotic calcifications throughout the abdominal aorta and its proximal branches. No abnormal dilatation. Lymph nodes: Unremarkable. No enlarged lymph nodes. IMPRESSION: 1. No acute findings in the abdomen or pelvis. No bowel obstruction or bowel wall thickening. Gallbladder and appendix appear unremarkable. No obstructive uropathy. 2. Scattered subcentimeter hepatic hypodensities, likely simple cysts. Largest hypodensity measures 1.2 cm in the posterior right hepatic lobe near the dome (series 3 image 12).
--- NOTE | 2018-05-03 15:15 | Cardiac Electrophysiology PN ---
Assessment/Plan Assessment/Plan 1. Chest pain with anterior T wave inversion , possible acute coronary syndrome. No NC. Echo Nl EF 60%. Stress test on Saturday 2. Epigastric pain with epigastric nodules.Had CT abdomen. FU with GI 3. Hypertension.On Norvasc 5 4. Dyslipidemia. 5. Recent right knee injury. Subjective Subjective Just came back from CT. No events. In SR Objective Last 24 Hour Vital Signs Date Time Temp Pulse Resp B/P (MAP) Pulse Ox O2 Delivery O2 Flow Rate FiO2 05/03/18 12:01 97.9 70 18 134/74 (94) 98 05/03/18 12:00 78 05/03/18 09:00 Room Air 05/03/18 08:16 65 144/83 05/03/18 08:00 71 05/03/18 08:00 97.6 65 18 144/83 (103) 97 05/03/18 04:00 62 05/03/18 04:00 98.1 66 18 133/83 (100) 99 05/03/18 00:00 68 05/03/18 00:00 97.7 68 20 115/79 (91) 97 05/02/18 21:00 Room Air 05/02/18 20:00 82 05/02/18 20:00 98.8 73 20 134/86 (102) 98 05/02/18 19:34 77 18 Room Air 21 05/02/18 16:00 97.9 77 20 150/94 (112) 98 05/02/18 16:00 82 Intake and Output 05/02/18 05/03/18 19:00 07:00 Intake Total 420 ml 120 ml Balance 420 ml 120 ml Intake Oral 420 ml 120 ml # Voids 4 2 Laboratory Tests Test 05/02/18 21:00 05/03/18 05:52 Sodium Level 140 MMOL/L (136-145) 140 MMOL/L (136-145) Potassium Level 3.8 MMOL/L (3.5-5.1) 3.6 MMOL/L (3.5-5.1) Chloride Level 102 MMOL/L (98-107) 106 MMOL/L (98-107) Carbon Dioxide Level 31 MMOL/L (21-32) 27 MMOL/L (21-32) Anion Gap 8 mmol/L (5-15) 8 mmol/L (5-15) Blood Urea Nitrogen 21 mg/dL (7-18) H 17 mg/dL (7-18) Creatinine 0.9 MG/DL (0.55-1.30) 0.8 MG/DL (0.55-1.30) Estimat Glomerular Filtration Rate mL/min (>60) mL/min (>60) Glucose Level 87 MG/DL (74-106) 84 MG/DL (74-106) Calcium Level 9.3 MG/DL (8.5-10.1) 9.4 MG/DL (8.5-10.1) White Blood Count 5.4 K/UL (4.8-10.8) Red Blood Count 4.30 M/UL (4.20-5.40) Hemoglobin 13.8 G/DL (12.0-16.0) Hematocrit 40.2 % (37.0-47.0) Mean Corpuscular Volume 93 FL (80-99) Mean Corpuscular Hemoglobin 32.0 PG (27.0-31.0) H Mean Corpuscular Hemoglobin Concent 34.2 G/DL (32.0-36.0) Red Cell Distribution Width 11.1 % (11.6-14.8) L Platelet Count 254 K/UL (150-450) Mean Platelet Volume 6.5 FL (6.5-10.1) Neutrophils (%) (Auto) 42.3 % (45.0-75.0) L Lymphocytes (%) (Auto) 44.4 % (20.0-45.0) Monocytes (%) (Auto) 9.4 % (1.0-10.0) Eosinophils (%) (Auto) 2.8 % (0.0-3.0) Basophils (%) (Auto) 1.1 % (0.0-2.0) Phosphorus Level 3.8 MG/DL (2.5-4.9) Magnesium Level 2.3 MG/DL (1.8-2.4) Total Bilirubin 0.7 MG/DL (0.2-1.0) Aspartate Amino Transf (AST/SGOT) 18 U/L (15-37) Alanine Aminotransferase (ALT/SGPT) 28 U/L (12-78) Alkaline Phosphatase 63 U/L (46-116) Total Protein 7.2 G/DL (6.4-8.2) Albumin 3.6 G/DL (3.4-5.0) Globulin 3.6 g/dL Albumin/Globulin Ratio 1.0 (1.0-2.7) Objective HEAD AND NECK: No JVD. LUNGS: Good air entry. No wheezing or rales. HEART: Reveals S1 and S2. Regular rhythm. No gallop. ABDOMEN: Soft, nondistended, and nontender. Epigastric tenderness. There was a nodule felt on the epigastric area. No rebound tenderness. No fluid shift. No ascites. EXTREMITIES: No cyanosis, clubbing, or edema. Right knee was noted to have ecchymosis. NEUROLOGIC: MAT PACKER II through XII grossly intact. Motor is 5/5 in all extremities. Gait is intact. Jose Luis Ennis MD May 03, 2018 15:15
[2018-05-03 16:00] VITALS: BP 131/84
--- NOTE | 2018-05-03 16:20 | Internal Med Progress Note ---
Subjective Date of Service: May 03, 2018 Physician Name Curt Peraza Attending Physician Reynaldo Hartmann MD Current Medications Medications (Trade) Dose Ordered Sig/Sabiha Route PRN Reason Start Time Stop Time Status Last Admin Dose Admin Acetaminophen (Tylenol) 650 mg Q4H PRN ORAL FEVER 05/01/18 16:15 05/31/18 16:14 Albuterol/ Ipratropium (Albuterol/ Ipratropium) 3 ml Q4H PRN HHN Shortness of Breath 05/01/18 16:15 05/06/18 16:14 Amlodipine Besylate (Norvasc) 5 mg DAILY ORAL 05/02/18 09:00 06/01/18 08:59 05/03/18 08:16 Aspirin (ASA) 162 mg DAILY ORAL 05/02/18 09:00 06/01/18 08:59 05/03/18 08:16 Barium Sulfate (Readi-Cat 2) 450 ml NOW PRN ORAL Radiology Procedure 05/02/18 14:00 05/04/18 13:54 Barium Sulfate (Readi-Cat 2) 450 ml NOW PRN ORAL Radiology Procedure 05/03/18 13:00 05/03/18 23:59 Diltiazem HCl (Cardizem) 10 mg Q1H PRN IV heart rate more than 120, 05/01/18 16:15 05/31/18 16:14 Enalaprilat (Vasotec) 2.5 mg Q6H PRN IV sbp more than 160 05/01/18 16:15 05/31/18 16:14 Heparin Sodium (Porcine) (Heparin 5000 units/ml) 5,000 units EVERY 12 HOURS SUBQ 05/01/18 21:00 05/31/18 20:59 Iopamidol (Isovue-300 100ml) 100 ml NOW PRN INJ Radiology Procedure 05/02/18 14:00 05/04/18 13:54 Iopamidol (Isovue-300 100ml) 100 ml NOW PRN INJ Radiology Procedure 05/03/18 13:00 05/03/18 23:59 Ketorolac Tromethamine (Toradol 30mg) 30 mg Q6H PRN IV moderate pain ( 4-6) 05/01/18 16:15 05/06/18 16:14 Morphine Sulfate (Morphine Sulfate) 2 mg Q4H PRN IVP severe Pain (Pain Scale 7-10) 05/01/18 16:15 05/08/18 16:14 Nitroglycerin (Ntg) 0.4 mg Q5M PRN SL Prn Chest Pain 05/01/18 16:15 05/31/18 16:14 Ondansetron HCl (Zofran) 4 mg Q6H PRN IVP Nausea & Vomiting 05/01/18 16:15 05/31/18 16:14 Pantoprazole (Protonix) 40 mg EVERY 12 HOURS ORAL 05/03/18 09:00 06/02/18 08:59 05/03/18 08:16 Polyethylene Glycol (Miralax) 17 gm DAILYPRN PRN ORAL Constipation 05/01/18 16:15 05/31/18 16:14 Regadenoson (Lexiscan) 0.4 mg ONCE PRN IV stress test 05/05/18 09:00 05/05/18 18:00 Temazepam (Restoril) 15 mg HSPRN PRN ORAL Insomnia 05/01/18 16:15 05/08/18 16:14 Allergies: Coded Allergies: No Known Allergies (Unverified , 05/01/18) Objective Last Vital Signs Date Time Temp Pulse Resp B/P (MAP) Pulse Ox O2 Delivery O2 Flow Rate FiO2 05/03/18 16:00 98.1 80 20 131/84 (100) 96 05/03/18 09:00 Room Air 05/02/18 19:34 21 Laboratory Tests Test 05/02/18 21:00 05/03/18 05:52 Sodium Level 140 MMOL/L (136-145) 140 MMOL/L (136-145) Potassium Level 3.8 MMOL/L (3.5-5.1) 3.6 MMOL/L (3.5-5.1) Chloride Level 102 MMOL/L (98-107) 106 MMOL/L (98-107) Carbon Dioxide Level 31 MMOL/L (21-32) 27 MMOL/L (21-32) Anion Gap 8 mmol/L (5-15) 8 mmol/L (5-15) Blood Urea Nitrogen 21 mg/dL (7-18) H 17 mg/dL (7-18) Creatinine 0.9 MG/DL (0.55-1.30) 0.8 MG/DL (0.55-1.30) Estimat Glomerular Filtration Rate mL/min (>60) mL/min (>60) Glucose Level 87 MG/DL (74-106) 84 MG/DL (74-106) Calcium Level 9.3 MG/DL (8.5-10.1) 9.4 MG/DL (8.5-10.1) White Blood Count 5.4 K/UL (4.8-10.8) Red Blood Count 4.30 M/UL (4.20-5.40) Hemoglobin 13.8 G/DL (12.0-16.0) Hematocrit 40.2 % (37.0-47.0) Mean Corpuscular Volume 93 FL (80-99) Mean Corpuscular Hemoglobin 32.0 PG (27.0-31.0) H Mean Corpuscular Hemoglobin Concent 34.2 G/DL (32.0-36.0) Red Cell Distribution Width 11.1 % (11.6-14.8) L Platelet Count 254 K/UL (150-450) Mean Platelet Volume 6.5 FL (6.5-10.1) Neutrophils (%) (Auto) 42.3 % (45.0-75.0) L Lymphocytes (%) (Auto) 44.4 % (20.0-45.0) Monocytes (%) (Auto) 9.4 % (1.0-10.0) Eosinophils (%) (Auto) 2.8 % (0.0-3.0) Basophils (%) (Auto) 1.1 % (0.0-2.0) Phosphorus Level 3.8 MG/DL (2.5-4.9) Magnesium Level 2.3 MG/DL (1.8-2.4) Total Bilirubin 0.7 MG/DL (0.2-1.0) Aspartate Amino Transf (AST/SGOT) 18 U/L (15-37) Alanine Aminotransferase (ALT/SGPT) 28 U/L (12-78) Alkaline Phosphatase 63 U/L (46-116) Total Protein 7.2 G/DL (6.4-8.2) Albumin 3.6 G/DL (3.4-5.0) Globulin 3.6 g/dL Albumin/Globulin Ratio 1.0 (1.0-2.7) Intake and Output 05/02/18 05/03/18 19:00 07:00 Intake Total 420 ml 120 ml Balance 420 ml 120 ml Intake Oral 420 ml 120 ml # Voids 4 2 Objective PHYSICAL EXAMINATION: GENERAL: The patient is awake and responsive, in no acute distress. HEAD AND NECK: Pupils are reactive to light. Extraocular movements intact. NECK: Supple. No JVD. LUNGS: Good air entry. No wheezing or rales. HEART: Reveals S1 and S2. Regular rhythm. No gallop. ABDOMEN: Soft, nondistended, and nontender. Epigastric tenderness. There was a nodule felt on the epigastric area. No rebound tenderness. No fluid shift. No ascites. EXTREMITIES: No cyanosis, clubbing, or edema. Right knee was noted to have ecchymosis. NEUROLOGIC: OYSTER UNLOADER II through XII grossly intact. Motor is 5/5 in all extremities. Gait is intact. RECTAL: Refused and deferred. GENITOURINARY: Refused and deferred. PSYCHIATRIC: Mood and affect is intact. Assessment/Plan Assessment/Plan ASSESSMENT: 1. Chest pain, possible acute coronary syndrome. 2. Epigastric pain 3. Hypertension. 4. Dyslipidemia. 5. Recent right knee injury. PLAN: 1. Admit the patient to telemetry. 2. We will follow up with Dr. Patrick from Pulmonary Critical Care, Dr. Hector Benoit from Gastroenterology, Dr. Ennis from Cardiology Electrophysiology. Await cardiolite stress test on Saturday05/06/18 3. We will follow up with the laboratory. 4. CT scan of the abdomen=No acute findings; follow GI recs 5. Code status is Full Code. 6. DVT prophylaxis with heparin subcutaneous. 7. We will continue home medication. Curt Peraza MD May 03, 2018 16:20
--- NOTE | 2018-05-03 18:45 | Consultation ---
DATE OF CONSULTATION: 05/02/2018 CARDIOLOGY CONSULTATION CONSULTING PHYSICIAN: Jose Luis Ennis M.D. REFERRING PHYSICIAN: Reynaldo Hartmann M.D. REASON FOR CONSULTATION: chest pain. HISTORY OF PRESENT ILLNESS: The patient is a 73-year-old lady with history of hypertension, hyperlipidemia, presented to the emergency room with chest pain of four days duration. The patient's pain is mostly in the epigastric area. The pain was relieved with aspirin and nitroglycerin. The patient also had right-sided leg pain after recent surgery as well. The patient's EKG, however, shows sinus rhythm with T-wave inversions suggestive of anterior ischemia. Echocardiogram showed ejection fraction of 65%. Her troponin, however, was negative x3. At the time of my evaluation, the patient denies any chest pain or shortness of breath even though she has epigastric tenderness. REVIEW OF SYSTEMS: Review of systems was negative other than what is mentioned in the history of present illness. PAST MEDICAL HISTORY: Hypertension and history of hyperlipidemia. FAMILY HISTORY: Noncontributory. MEDICATION: Per reconciliation. PHYSICAL EXAMINATION: VITAL SIGNS: Blood pressure of 142/90, pulse is 82, respirations 18, and she is afebrile. HEAD AND NECK: Showed no JVD. LUNGS: Clear. CARDIOVASCULAR: Regular S1 and S2 with no gallop or murmur. ABDOMEN: Soft. EXTREMITIES: No pitting edema. LABORATORY DATA: Labs show sodium 140, potassium 3.0, BUN of 13, creatinine 0.8 and glucose of 100. Troponin negative x3. White count is 6.1, hemoglobin 14.4, hematocrit 42.2, and platelet count 261,000. INR is 0.9. ASSESSMENT AND PLAN: 1. Atypical epigastric pain. The pain is atypical. The patient will be ruled out for myocardial infarction with ejection fraction within normal range. The patient, however, has anterior T-wave inversions suggestive of anterior ischemia. We will schedule the patient for nuclear stress test for further evaluation and management, but the source of her epigastric pain is from a GI source. 2. Hypertension. Continue Norvasc 5 mg daily. 3. History of hyperlipidemia. Check fasting lipid profile. 4. Epigastric pain. GI evaluation is pending. Thank you much, Dr. Hartmann, for allowing me to participate in the care of this patient. Please do not hesitate to contact me for any questions regarding my evaluation. Jose Luis Ennis M.D. DR: ASHLEY JOB#: [id number] CC:
--- NOTE | 2018-05-03 19:30 | NUR ---
NURSE NOTES: Report received from Javier BERNAL. Pt is sitting up in bed in stable condition. Pt is awake, alert, and oriented x4. Pt is on room air and breathing is even and unlabored. No acute distress noted. IV site is L AC #20g and is noted to be asymptomatic, patent, and intact. Bed is placed in lowest position with brake engaged and side rails up x2. Family is at bedside. Call light and side table placed within reach. Will continue to monitor.
--- NOTE | 2018-05-03 19:33 | NUR ---
HAND-OFF: Report given to GABE Bates.
--- NOTE | 2018-05-03 22:00 | Consultation ---
DATE OF CONSULTATION: 05/02/2018 GASTROENTEROLOGY CONSULTATION CHIEF COMPLAINT: I was asked to see this patient by Dr. Reynaldo Hartmann for evaluation of atypical chest pain and possible gastrointestinal origin of pain. HISTORY OF PRESENT ILLNESS: The patient is a pleasant 73-year-old woman who comes in with a four-day history of chest pain and difficulty breathing. She points to the left upper chest for location. She has had no nausea or vomiting. No acid heartburn or reflux-type symptoms. She does not have any change in her pain with oral intake. Her bowel movements are daily. Her last colonoscopy was last a few years ago. She states that since she is in the hospital, she also has some further xiphoid area of pain, which is new. The patient's brother has a history of colon cancer. PAST MEDICAL HISTORY: History of hypertension. FAMILY HISTORY: Noncontributory except for brother with colon cancer. SOCIAL HISTORY: The patient does not smoke or drink alcohol. MEDICATIONS: See the chart list for details. ALLERGIES: None. REVIEW OF SYSTEMS: Otherwise, negative. PHYSICAL EXAMINATION: GENERAL: A pleasant elderly woman, seen in her room, in no distress. HEENT: Normocephalic and atraumatic. Sclerae anicteric. Oropharynx clear. NECK: Supple. CHEST: Clear to auscultation. CARDIOVASCULAR: Revealed a regular rate. ABDOMEN: Soft. Good bowel sounds. There is no organomegaly. There was, however, some tenderness right at the xiphoid process area. EXTREMITIES: Revealed no edema. NEUROLOGIC: Grossly nonfocal. LABORATORY DATA: Noted. ASSESSMENT: This patient has atypical chest pain with no significant features suggestive of gastrointestinal origin; however, the patient should undergo her usual cardiac clearance and workup and also there is a CT scan, which has been ordered, which I will follow up. If the CT scan is negative and workup from a cardiac standpoint will be negative, then an outpatient endoscopy can be considered to evaluate any source of other GI pain such as ulcers or reflux. RECOMMENDATIONS: Per above discussion and per orders written in the chart. Thank you for asking me to participate in care of this patient. Hector Benoit M.D. DR: DAISY JOB#: [id number] CC:
[2018-05-04] VITALS: BP 110/62
[2018-05-04 04:00] VITALS: BP 109/67
--- NOTE | 2018-05-04 07:15 | NUR ---
HAND-OFF: Report given to Javier BERNAL. Pt is resting in bed in stable condition. No acute distress noted. Endorsed plan of care.
--- NOTE | 2018-05-04 07:16 | NUR ---
NURSE NOTES: Report received from Jana BERNAL. Pt is resting in bed, semi-gambino position and in stable condition. Pt is awake, alert, and oriented x4. Pt is on room air and breathing is even and unlabored. No acute distress noted at this time. Bed placed in lowest position with brake engaged, side rails up x2, and Call light and side table placed within reach. Will continue to monitor and follow plan of care.
[2018-05-04 08:00] VITALS: BP 131/77
[2018-05-04] MEDS: Aspirin Baby 81mg ORAL SCH (08:46)
[2018-05-04] MEDS: Heparin 5000 units/ml inj SUBQ SCH ×2 (09:00→21:00)
[2018-05-04 09:25] LABS: BASOPHILS % (AUTO) 1.3 % (0.0-2.0); EOSINOPHILS % (AUTO) 1.6 % (0.0-3.0); HEMATOCRIT 41.6 % (37.0-47.0); HEMOGLOBIN 14.1 G/DL (12.0-16.0); LYMPHOCYTES % (AUTO) 36.1 % (20.0-45.0); MEAN CORPUSCULAR VOLUME 94 FL (80-99); MONOCYTES % (AUTO) 7.9 % (1.0-10.0); PLATELET COUNT 267 K/UL (150-450); RED BLOOD COUNT 4.43 M/UL (4.20-5.40); RED CELL DISTRIBUTION WIDTH 11.3 % (11.6-14.8); WHITE BLOOD COUNT 6.5 K/UL (4.8-10.8)
[2018-05-04 09:41] LABS: ANION GAP 7 mmol/L (5-15); BLOOD UREA NITROGEN 21 mg/dL (7-18); CALCIUM 9.2 MG/DL (8.5-10.1); CARBON DIOXIDE 30 MMOL/L (21-32); CHLORIDE 104 MMOL/L (98-107); CREATININE 0.9 MG/DL (0.55-1.30); POTASSIUM 4.3 MMOL/L (3.5-5.1); SODIUM 141 MMOL/L (136-145)
--- NOTE | 2018-05-04 09:43 | NUR ---
CASE MANAGEMENT: REVIEW 05/04/2018 SI: ACUTE ISCHEMIC HEART DX. T 98.1 HR 66 RR 18 B/P 131/77 SATS 99% ON RA BUN 21 IS: PROTONIX PO Q12H NORVASC PO QD ASA PO QD : TO TELEMETRY PLAN: STRESS TEST W/ MEDS
--- NOTE | 2018-05-04 10:31 | General Progress Note ---
Assessment/Plan Problem List: (1) History of hypertension ICD Codes: Z86.79 - Personal history of other diseases of the circulatory system SNOMED: 418574078 (2) GERD (gastroesophageal reflux disease) ICD Codes: K21.9 - Gastro-esophageal reflux disease without esophagitis SNOMED: 327993366 (3) Chest pain ICD Codes: R07.9 - Chest pain, unspecified SNOMED: 77822996 Assessment/Plan protonix abd CT >>>reviewed pending stress test will fu Subjective ROS Limited/Unobtainable: Yes Allergies: Coded Allergies: No Known Allergies (Unverified , 05/01/18) Subjective no event Objective Last 24 Hour Vital Signs Date Time Temp Pulse Resp B/P (MAP) Pulse Ox O2 Delivery O2 Flow Rate FiO2 05/04/18 09:00 Room Air 05/04/18 08:46 66 131/77 05/04/18 08:00 98.1 66 18 131/77 (95) 99 05/04/18 07:01 74 18 Room Air 21 05/04/18 04:00 65 05/04/18 04:00 97.1 97 18 109/67 (81) 97 05/04/18 00:00 97.5 63 17 110/62 (78) 97 05/04/18 00:00 62 05/03/18 21:00 Room Air 05/03/18 20:00 78 05/03/18 20:00 78 20 05/03/18 16:00 98.1 80 20 131/84 (100) 96 05/03/18 16:00 76 05/03/18 12:01 97.9 70 18 134/74 (94) 98 05/03/18 12:00 78 Intake and Output 05/03/18 05/04/18 18:59 06:59 Intake Total 240 ml 240 ml Balance 240 ml 240 ml Intake Oral 240 ml 240 ml # Voids 2 2 Laboratory Tests 05/04/18 07:45: White Blood Count 6.5, Red Blood Count 4.43, Hemoglobin 14.1, Hematocrit 41.6, Mean Corpuscular Volume 94, Mean Corpuscular Hemoglobin 31.8H, Mean Corpuscular Hemoglobin Concent 33.9, Red Cell Distribution Width 11.3L, Platelet Count 267, Mean Platelet Volume 6.7, Neutrophils (%) (Auto) 53.0, Lymphocytes (%) (Auto) 36.1, Monocytes (%) (Auto) 7.9, Eosinophils (%) (Auto) 1.6, Basophils (%) (Auto ) 1.3, Sodium Level 141, Potassium Level 4.3, Chloride Level 104, Carbon Dioxide Level 30, Anion Gap 7, Blood Urea Nitrogen 21H, Creatinine 0.9, Estimat Glomerular Filtration Rate , Glucose Level 96, Calcium Level 9.2 rocedure: CT Abdomen Pelvis w/Contrast EXAM: CT Abdomen and Pelvis With Intravenous Contrast CLINICAL HISTORY: ABD TEND TECHNIQUE: Axial computed tomography images of the abdomen and pelvis with intravenous contrast. CTDI is 14 mGy and DLP is 651 mGy-cm. One or more of the following dose reduction techniques were used: automated exposure control, adjustment of the mA and/or kV according to patient size, use of iterative reconstruction technique. Oral contrast was administered. Coronal and sagittal reformatted images were created and reviewed. COMPARISON: No relevant prior studies available. FINDINGS: Lung bases: Mild dependent atelectasis in bilateral lung bases. ABDOMEN: Liver: Scattered subcentimeter hepatic hypodensities, likely simple cysts. Largest hypodensity measures 1.2 cm in the posterior right hepatic lobe near the dome (series 3 image 12). Gallbladder and bile ducts: Unremarkable. No calcified stones. No ductal dilation. Pancreas: Unremarkable. No mass. No ductal dilation. Spleen: Unremarkable. No splenomegaly. Adrenals: Unremarkable. No mass. Kidneys and ureters: Simple-appearing renal cortical cysts, largest measuring 10 mm in the right mid kidney. The kidneys otherwise appear unremarkable. No hydronephrosis or hydroureter. Stomach and bowel: Unremarkable. No obstruction. No mucosal thickening. PELVIS: Appendix: No findings to suggest acute appendicitis. Bladder: Unremarkable. No visible stones. Reproductive: The uterus and ovaries are not visualized and may be surgically absent. ABDOMEN and PELVIS: Intraperitoneal space: Unremarkable. No free air. No significant fluid collection. Bones/joints: Mild multilevel degenerative changes throughout the visualized spine with disc space loss, most prominent at L4-5. No acute fracture. No dislocation. Soft tissues: Unremarkable. Vasculature: Atherosclerotic calcifications throughout the abdominal aorta and its proximal branches. No abnormal dilatation. Lymph nodes: Unremarkable. No enlarged lymph nodes. IMPRESSION: 1. No acute findings in the abdomen or pelvis. No bowel obstruction or bowel wall thickening. Gallbladder and appendix appear unremarkable. No obstructive uropathy. 2. Scattered subcentimeter hepatic hypodensities, likely simple cysts. Largest hypodensity measures 1.2 cm in the posterior right hepatic lobe near the dome (series 3 image 12). Dictated By: Cipriano Healy MD Electronically Signed By: Cipriano Healy MD Signed Date/Time 05/03/18 1504 CC: Reynaldo Hartmann MD Height (Feet): 5 Height (Inches): 3.00 Weight (Pounds): 136 General Appearance: alert EENT: normal ENT inspection Neck: supple Cardiovascular: normal rate Respiratory/Chest: decreased breath sounds Abdomen: normal bowel sounds, non tender, soft Extremities: non-tender Richard Adams MD May 04, 2018 10:31
[2018-05-04 12:00] VITALS: BP 112/77
--- NOTE | 2018-05-04 14:17 | Pulmonology Progress Note ---
Assessment/Plan Problems: (1) ACS (acute coronary syndrome) (2) Costochondritis (3) GERD (gastroesophageal reflux disease) (4) History of hypertension Assessment/Plan stress test pending, symptomatic treatment CT of abdomen reviewed monitor BP keep in teli dvt prophylaxis. Subjective ROS Limited/Unobtainable: No Constitutional: Reports: no symptoms HEENT: Repors: no symptoms Respiratory: Reports: no symptoms Allergies: Coded Allergies: No Known Allergies (Unverified , 05/01/18) Objective Last 24 Hour Vital Signs Date Time Temp Pulse Resp B/P (MAP) Pulse Ox O2 Delivery O2 Flow Rate FiO2 05/04/18 12:00 98.7 83 18 112/77 (89) 98 05/04/18 12:00 78 05/04/18 09:00 Room Air 05/04/18 08:46 66 131/77 05/04/18 08:00 76 05/04/18 08:00 98.1 66 18 131/77 (95) 99 05/04/18 07:01 74 18 Room Air 21 05/04/18 04:00 65 05/04/18 04:00 97.1 97 18 109/67 (81) 97 05/04/18 00:00 97.5 63 17 110/62 (78) 97 05/04/18 00:00 62 05/03/18 21:00 Room Air 05/03/18 20:00 78 05/03/18 20:00 78 20 05/03/18 16:00 98.1 80 20 131/84 (100) 96 05/03/18 16:00 76 Intake and Output 05/03/18 05/04/18 19:00 07:00 Intake Total 240 ml 240 ml Balance 240 ml 240 ml Intake Oral 240 ml 240 ml # Voids 2 2 Objective General Appearance: WD/WN HEENT: normocephalic, atraumatic Respiratory/Chest: chest wall non-tender, lungs clear Cardiovascular: normal peripheral pulses, regular rhythm Abdomen: normal bowel sounds, soft, non tender Genitourinary: normal external genitalia Skin: no rash Neurologic/Psychiatric: belt lacer II-XII grossly normal Lymphatic: no neck adenopathy Laboratory Tests 05/04/18 07:45: White Blood Count 6.5, Red Blood Count 4.43, Hemoglobin 14.1, Hematocrit 41.6, Mean Corpuscular Volume 94, Mean Corpuscular Hemoglobin 31.8H, Mean Corpuscular Hemoglobin Concent 33.9, Red Cell Distribution Width 11.3L, Platelet Count 267, Mean Platelet Volume 6.7, Neutrophils (%) (Auto) 53.0, Lymphocytes (%) (Auto) 36.1, Monocytes (%) (Auto) 7.9, Eosinophils (%) (Auto) 1.6, Basophils (%) (Auto ) 1.3, Sodium Level 141, Potassium Level 4.3, Chloride Level 104, Carbon Dioxide Level 30, Anion Gap 7, Blood Urea Nitrogen 21H, Creatinine 0.9, Estimat Glomerular Filtration Rate , Glucose Level 96, Calcium Level 9.2 Current Medications Medications (Trade) Dose Ordered Sig/Sabiha Route PRN Reason Start Time Stop Time Status Last Admin Dose Admin Acetaminophen (Tylenol) 650 mg Q4H PRN ORAL FEVER 05/01/18 16:15 05/31/18 16:14 Albuterol/ Ipratropium (Albuterol/ Ipratropium) 3 ml Q4H PRN HHN Shortness of Breath 05/01/18 16:15 05/06/18 16:14 Amlodipine Besylate (Norvasc) 5 mg DAILY ORAL 05/02/18 09:00 06/01/18 08:59 05/04/18 08:46 Aspirin (ASA) 162 mg DAILY ORAL 05/02/18 09:00 06/01/18 08:59 05/04/18 08:46 Diltiazem HCl (Cardizem) 10 mg Q1H PRN IV heart rate more than 120, 05/01/18 16:15 05/31/18 16:14 Enalaprilat (Vasotec) 2.5 mg Q6H PRN IV sbp more than 160 05/01/18 16:15 05/31/18 16:14 Heparin Sodium (Porcine) (Heparin 5000 units/ml) 5,000 units EVERY 12 HOURS SUBQ 05/01/18 21:00 05/31/18 20:59 Ketorolac Tromethamine (Toradol 30mg) 30 mg Q6H PRN IV moderate pain ( 4-6) 05/01/18 16:15 05/06/18 16:14 Morphine Sulfate (Morphine Sulfate) 2 mg Q4H PRN IVP severe Pain (Pain Scale 7-10) 05/01/18 16:15 05/08/18 16:14 Nitroglycerin (Ntg) 0.4 mg Q5M PRN SL Prn Chest Pain 05/01/18 16:15 05/31/18 16:14 Ondansetron HCl (Zofran) 4 mg Q6H PRN IVP Nausea & Vomiting 05/01/18 16:15 05/31/18 16:14 Pantoprazole (Protonix) 40 mg EVERY 12 HOURS ORAL 05/03/18 09:00 06/02/18 08:59 05/04/18 08:46 Polyethylene Glycol (Miralax) 17 gm DAILYPRN PRN ORAL Constipation 05/01/18 16:15 05/31/18 16:14 Regadenoson (Lexiscan) 0.4 mg ONCE PRN IV stress test 05/05/18 09:00 05/05/18 18:00 Temazepam (Restoril) 15 mg HSPRN PRN ORAL Insomnia 05/01/18 16:15 05/08/18 16:14 Sharee Patrick MD May 04, 2018 14:17
--- NOTE | 2018-05-04 15:46 | Internal Med Progress Note ---
Subjective Date of Service: May 04, 2018 Physician Name Curt Peraza Attending Physician Reynaldo Hartmann MD Current Medications Medications (Trade) Dose Ordered Sig/Sabiha Route PRN Reason Start Time Stop Time Status Last Admin Dose Admin Acetaminophen (Tylenol) 650 mg Q4H PRN ORAL FEVER 05/01/18 16:15 05/31/18 16:14 Albuterol/ Ipratropium (Albuterol/ Ipratropium) 3 ml Q4H PRN HHN Shortness of Breath 05/01/18 16:15 05/06/18 16:14 Amlodipine Besylate (Norvasc) 5 mg DAILY ORAL 05/02/18 09:00 06/01/18 08:59 05/04/18 08:46 Aspirin (ASA) 162 mg DAILY ORAL 05/02/18 09:00 06/01/18 08:59 05/04/18 08:46 Diltiazem HCl (Cardizem) 10 mg Q1H PRN IV heart rate more than 120, 05/01/18 16:15 05/31/18 16:14 Enalaprilat (Vasotec) 2.5 mg Q6H PRN IV sbp more than 160 05/01/18 16:15 05/31/18 16:14 Heparin Sodium (Porcine) (Heparin 5000 units/ml) 5,000 units EVERY 12 HOURS SUBQ 05/01/18 21:00 05/31/18 20:59 Ketorolac Tromethamine (Toradol 30mg) 30 mg Q6H PRN IV moderate pain ( 4-6) 05/01/18 16:15 05/06/18 16:14 Morphine Sulfate (Morphine Sulfate) 2 mg Q4H PRN IVP severe Pain (Pain Scale 7-10) 05/01/18 16:15 05/08/18 16:14 Nitroglycerin (Ntg) 0.4 mg Q5M PRN SL Prn Chest Pain 05/01/18 16:15 05/31/18 16:14 Ondansetron HCl (Zofran) 4 mg Q6H PRN IVP Nausea & Vomiting 05/01/18 16:15 05/31/18 16:14 Pantoprazole (Protonix) 40 mg EVERY 12 HOURS ORAL 05/03/18 09:00 06/02/18 08:59 05/04/18 08:46 Polyethylene Glycol (Miralax) 17 gm DAILYPRN PRN ORAL Constipation 05/01/18 16:15 05/31/18 16:14 Regadenoson (Lexiscan) 0.4 mg ONCE PRN IV stress test 05/05/18 09:00 05/05/18 18:00 Temazepam (Restoril) 15 mg HSPRN PRN ORAL Insomnia 05/01/18 16:15 05/08/18 16:14 Allergies: Coded Allergies: No Known Allergies (Unverified , 05/01/18) Subjective 73 YO F admitted with chest and epigastric pain. Cover for Int Med-Dr Hartmann. Await cardiac stress test on Sat05/05/18 Objective Last Vital Signs Date Time Temp Pulse Resp B/P (MAP) Pulse Ox O2 Delivery O2 Flow Rate FiO2 05/04/18 12:00 98.7 83 18 112/77 (89) 98 05/04/18 09:00 Room Air 05/04/18 07:01 21 Laboratory Tests Test 05/04/18 07:45 White Blood Count 6.5 K/UL (4.8-10.8) Red Blood Count 4.43 M/UL (4.20-5.40) Hemoglobin 14.1 G/DL (12.0-16.0) Hematocrit 41.6 % (37.0-47.0) Mean Corpuscular Volume 94 FL (80-99) Mean Corpuscular Hemoglobin 31.8 PG (27.0-31.0) H Mean Corpuscular Hemoglobin Concent 33.9 G/DL (32.0-36.0) Red Cell Distribution Width 11.3 % (11.6-14.8) L Platelet Count 267 K/UL (150-450) Mean Platelet Volume 6.7 FL (6.5-10.1) Neutrophils (%) (Auto) 53.0 % (45.0-75.0) Lymphocytes (%) (Auto) 36.1 % (20.0-45.0) Monocytes (%) (Auto) 7.9 % (1.0-10.0) Eosinophils (%) (Auto) 1.6 % (0.0-3.0) Basophils (%) (Auto) 1.3 % (0.0-2.0) Sodium Level 141 MMOL/L (136-145) Potassium Level 4.3 MMOL/L (3.5-5.1) Chloride Level 104 MMOL/L (98-107) Carbon Dioxide Level 30 MMOL/L (21-32) Anion Gap 7 mmol/L (5-15) Blood Urea Nitrogen 21 mg/dL (7-18) H Creatinine 0.9 MG/DL (0.55-1.30) Estimat Glomerular Filtration Rate mL/min (>60) Glucose Level 96 MG/DL (74-106) Calcium Level 9.2 MG/DL (8.5-10.1) Intake and Output 05/03/18 05/04/18 19:00 07:00 Intake Total 240 ml 240 ml Balance 240 ml 240 ml Intake Oral 240 ml 240 ml # Voids 2 2 Objective PHYSICAL EXAMINATION: GENERAL: The patient is awake and responsive, in no acute distress. HEAD AND NECK: Pupils are reactive to light. Extraocular movements intact. NECK: Supple. No JVD. LUNGS: Good air entry. No wheezing or rales. HEART: Reveals S1 and S2. Regular rhythm. No gallop. ABDOMEN: Soft, nondistended, and nontender. Epigastric tenderness. There was a nodule felt on the epigastric area. No rebound tenderness. No fluid shift. No ascites. EXTREMITIES: No cyanosis, clubbing, or edema. Right knee was noted to have ecchymosis. 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 Motor is 5/5 in all extremities. Gait is intact. RECTAL: Refused and deferred. GENITOURINARY: Refused and deferred. PSYCHIATRIC: Mood and affect is intact. Assessment/Plan Assessment/Plan ASSESSMENT: 1. Chest pain, possible acute coronary syndrome. 2. Epigastric pain 3. Hypertension. 4. Dyslipidemia. 5. Recent right knee injury. PLAN: 1. Admit the patient to telemetry. 2. We will follow up with Dr. Patrick from Pulmonary Critical Care, Dr. Hector Benoit from Gastroenterology, Dr. Ennis from Cardiology Electrophysiology. Await cardiolite stress test on Saturday05/06/18 3. We will follow up with the laboratory. 4. CT scan of the abdomen=No acute findings; follow GI recs 5. Code status is Full Code. 6. DVT prophylaxis with heparin subcutaneous. 7. We will continue home medication. Curt Peraza MD May 04, 2018 15:46
[2018-05-04 16:00] VITALS: BP 120/76
--- NOTE | 2018-05-04 19:20 | NUR ---
HAND-OFF: Report given to GABE Montemayor.
[2018-05-04 20:00] VITALS: BP 116/68
--- NOTE | 2018-05-04 20:07 | NUR ---
NURSE NOTES: RECEIVED PATIENT SITTING IN CHAIR, NO COMPLAINTS OF PAIN AT THIS TIME. FALL PRECAUTIONS IN PLACE: CALL LIGHT AND BEDSIDE TABLE WITHIN REACH, BED IN LOW POSITION. PLAN OF CARE REVIEWED.
--- NOTE | 2018-05-04 21:00 | NUR ---
NURSE NOTES: INSTRUCTED PATIENT ON NPO STATUS AFTER MIDNIGHT FOR STRESS TEST IN AM. PATIENT VERBALIZED UNDERSTANDING.
[2018-05-05] VITALS: BP 120/73
[2018-05-05 04:00] VITALS: BP 122/64
--- NOTE | 2018-05-05 07:15 | NUR ---
NURSE NOTES: Recieved patient report from GABE Montemayor. Patient is sitting in bed. Patient denies pain at this time. Patient is breathing even and unlabored. Patient is on heart monitor. Fall precautions in place, call light within reach, side rails x2 up, and bed in lowest position. Will follow up with plan of care for everett today. Patient states she has not eat or drink since post midnight.
[2018-05-05 07:17] LABS: BASOPHILS % (AUTO) 1.2 % (0.0-2.0); EOSINOPHILS % (AUTO) 1.9 % (0.0-3.0); HEMATOCRIT 38.8 % (37.0-47.0); HEMOGLOBIN 13.5 G/DL (12.0-16.0); LYMPHOCYTES % (AUTO) 35.2 % (20.0-45.0); MEAN CORPUSCULAR VOLUME 93 FL (80-99); MONOCYTES % (AUTO) 8.4 % (1.0-10.0); NEUTROPHILS % (AUTO) 53.2 % (45.0-75.0); PLATELET COUNT 255 K/UL (150-450); RED BLOOD COUNT 4.17 M/UL (4.20-5.40); RED CELL DISTRIBUTION WIDTH 11.2 % (11.6-14.8); WHITE BLOOD COUNT 6.2 K/UL (4.8-10.8)
--- NOTE | 2018-05-05 07:24 | NUR ---
HAND-OFF: Report given to GABE TERRAZAS. PATIENT RESTING IN BED, NO SIGNS OF DISTRESS NOTED.
[2018-05-05 07:45] LABS: ALANINE AMINOTRANSFERASE 24 U/L (12-78); ALBUMIN 3.6 G/DL (3.4-5.0); ALKALINE PHOSPHATASE 66 U/L (46-116); ANION GAP 5 mmol/L (5-15); ASPARTATE AMINO TRANSFERASE 17 U/L (15-37); BILIRUBIN,TOTAL 0.6 MG/DL (0.2-1.0); BLOOD UREA NITROGEN 19 mg/dL (7-18); CALCIUM 9.2 MG/DL (8.5-10.1); CARBON DIOXIDE 30 MMOL/L (21-32); CHLORIDE 106 MMOL/L (98-107); CREATININE 0.9 MG/DL (0.55-1.30); PHOSPHORUS 4.5 MG/DL (2.5-4.9); POTASSIUM 4.6 MMOL/L (3.5-5.1); SODIUM 141 MMOL/L (136-145)
[2018-05-05 08:00] VITALS: BP 124/80
[2018-05-05] MEDS: Aspirin Baby 81mg ORAL SCH (08:27)
[2018-05-05] MEDS: Heparin 5000 units/ml inj SUBQ SCH (08:28)
[2018-05-05] MEDS ORDERED: Lexiscan 0.4mg/5ml syringe IV PRN (09:00)
--- NOTE | 2018-05-05 10:29 | Cardiology Report ---
APPROVED REPORT EXAM: Two-dimensional and M-mode echocardiogram with Doppler and color Doppler. INDICATION Left ventricular function M-Mode DIMENSIONS IVSd0.8 (0.7-1.1cm)Left Atrium (MM)2.6 (1.6-4.0cm) LVDd4.1 (3.5-5.6cm)Aortic Root3.2 (2.0-3.7cm) PWd1.1 (0.7-1.1cm)Aortic Cusp Exc.1.8 (1.5-2.0cm) LVDs2.4 (2.5-4.0cm) PWs1.0 cm Normal left ventricular chamber size, systolic function and wall motion. Left ventricular ejection fraction estimated to be 65 %. Borderline mild left ventricular hypertrophy by 2D. Anterior Echo-free space, may be due to pericardial fat or effusion. All other cardiac chamber sizes are within normal limits. Focal aortic valve sclerosis with adequate cusp excursion. Thickened mitral valve leaflets with normal excursion. Mitral annulus and aortic root calcification. Pulmonic valve not well visualized. Normal tricuspid valve structure. IVC measured at 1.8 cm with slight physiologic collapse. A color flow and spectral Doppler study was performed and revealed: Mild to moderate aortic insufficiency. Trace to mild mitral regurgitation. Mitral diastolic velocities suggest reduced left ventricular relaxation c/w mild LV diastolic dysfunction (Grade I). Trace tricuspid regurgitation. Tricuspid systolic velocities suggests peak right ventricular systolic pressure of 12 mmHg Trace pulmonic inssuficiency present.
--- NOTE | 2018-05-05 11:53 | Pulmonology Progress Note ---
Assessment/Plan Problems: (1) ACS (acute coronary syndrome) (2) Costochondritis (3) GERD (gastroesophageal reflux disease) (4) History of hypertension Assessment/Plan stress test pending, symptomatic treatment CT of abdomen reviewed, just hepatic cysts monitor BP keep in teli dvt prophylaxis. dc home if stress test negative. Subjective ROS Limited/Unobtainable: No Interval Events: doing better, Allergies: Coded Allergies: No Known Allergies (Unverified , 05/01/18) Objective Last 24 Hour Vital Signs Date Time Temp Pulse Resp B/P (MAP) Pulse Ox O2 Delivery O2 Flow Rate FiO2 05/05/18 08:49 Room Air 05/05/18 08:27 69 124/80 05/05/18 08:00 98.7 69 18 124/80 (95) 97 05/05/18 07:33 68 05/05/18 04:00 63 05/05/18 04:00 97.0 61 20 122/64 (83) 97 05/05/18 00:00 97.2 62 20 120/73 (89) 98 05/05/18 00:00 61 05/04/18 21:00 Room Air 05/04/18 20:54 71 16 Room Air 21 05/04/18 20:00 91 05/04/18 20:00 97.2 75 20 116/68 (84) 99 05/04/18 16:00 70 05/04/18 16:00 98.5 75 18 120/76 (91) 99 05/04/18 12:00 98.7 83 18 112/77 (89) 98 05/04/18 12:00 78 Intake and Output 05/04/18 05/05/18 18:59 06:59 Intake Total 840 ml 120 ml Balance 840 ml 120 ml Intake Oral 840 ml 120 ml # Voids 4 2 Objective General Appearance: WD/WN HEENT: normocephalic, atraumatic Respiratory/Chest: chest wall non-tender, lungs clear Cardiovascular: normal peripheral pulses, regular rhythm Abdomen: normal bowel sounds, soft, non tender Genitourinary: normal external genitalia Skin: no rash Neurologic/Psychiatric: hot blaster II-XII grossly normal Lymphatic: no neck adenopathy Laboratory Tests 05/05/18 06:30: White Blood Count 6.2, Red Blood Count 4.17L, Hemoglobin 13.5, Hematocrit 38.8, Mean Corpuscular Volume 93, Mean Corpuscular Hemoglobin 32.3H, Mean Corpuscular Hemoglobin Concent 34.7, Red Cell Distribution Width 11.2L, Platelet Count 255, Mean Platelet Volume 6.7, Neutrophils (%) (Auto) 53.2, Lymphocytes (%) (Auto) 35.2, Monocytes (%) (Auto) 8.4, Eosinophils (%) (Auto) 1.9, Basophils (%) (Auto ) 1.2, Erythrocyte Sedimentation Rate 40H, Sodium Level 141, Potassium Level 4.6 , Chloride Level 106, Carbon Dioxide Level 30, Anion Gap 5, Blood Urea Nitrogen 19H, Creatinine 0.9, Estimat Glomerular Filtration Rate , Glucose Level 96, Calcium Level 9.2, Phosphorus Level 4.5, Magnesium Level 2.2, Total Bilirubin 0.6, Aspartate Amino Transf (AST/SGOT) 17, Alanine Aminotransferase (ALT/SGPT) 24, Alkaline Phosphatase 66, Troponin I 0.000, Total Protein 7.3, Albumin 3.6, Globulin 3.7, Albumin/Globulin Ratio 1.0 Current Medications Medications (Trade) Dose Ordered Sig/Sabiha Route PRN Reason Start Time Stop Time Status Last Admin Dose Admin Acetaminophen (Tylenol) 650 mg Q4H PRN ORAL FEVER 05/01/18 16:15 05/31/18 16:14 Albuterol/ Ipratropium (Albuterol/ Ipratropium) 3 ml Q4H PRN HHN Shortness of Breath 05/01/18 16:15 05/06/18 16:14 Amlodipine Besylate (Norvasc) 5 mg DAILY ORAL 05/02/18 09:00 06/01/18 08:59 05/05/18 08:27 Aspirin (ASA) 162 mg DAILY ORAL 05/02/18 09:00 06/01/18 08:59 05/05/18 08:27 Diltiazem HCl (Cardizem) 10 mg Q1H PRN IV heart rate more than 120, 05/01/18 16:15 05/31/18 16:14 Enalaprilat (Vasotec) 2.5 mg Q6H PRN IV sbp more than 160 05/01/18 16:15 05/31/18 16:14 Heparin Sodium (Porcine) (Heparin 5000 units/ml) 5,000 units EVERY 12 HOURS SUBQ 05/01/18 21:00 05/31/18 20:59 Ketorolac Tromethamine (Toradol 30mg) 30 mg Q6H PRN IV moderate pain ( 4-6) 05/01/18 16:15 05/06/18 16:14 Morphine Sulfate (Morphine Sulfate) 2 mg Q4H PRN IVP severe Pain (Pain Scale 7-10) 05/01/18 16:15 05/08/18 16:14 Nitroglycerin (Ntg) 0.4 mg Q5M PRN SL Prn Chest Pain 05/01/18 16:15 05/31/18 16:14 Ondansetron HCl (Zofran) 4 mg Q6H PRN IVP Nausea & Vomiting 05/01/18 16:15 05/31/18 16:14 Pantoprazole (Protonix) 40 mg EVERY 12 HOURS ORAL 05/03/18 09:00 06/02/18 08:59 05/05/18 08:27 Polyethylene Glycol (Miralax) 17 gm DAILYPRN PRN ORAL Constipation 05/01/18 16:15 05/31/18 16:14 Regadenoson (Lexiscan) 0.4 mg ONCE PRN IV stress test 05/05/18 09:00 05/05/18 18:00 Temazepam (Restoril) 15 mg HSPRN PRN ORAL Insomnia 05/01/18 16:15 05/08/18 16:14 Sharee Patrick MD May 05, 2018 11:53
[2018-05-05 12:00] VITALS: BP 126/80
--- NOTE | 2018-05-05 13:37 | NUR ---
NURSE NOTES: Spoke to Dr. Hartmann's office. patient request disability form to be signed.
--- NOTE | 2018-05-05 15:15 | NUR ---
NURSE NOTES: Spoke to Dr. Talbert. Dr. Talbert saw patient. Dobutamine stress test's conclusion: Non-ischemic. Dr. Talbert states cardiac clearance.
--- NOTE | 2018-05-05 15:23 | Cardiac Electrophysiology PN ---
Assessment/Plan Assessment/Plan 1. Chest pain with anterior T wave inversion , possible acute coronary syndrome. No MN. Echo Nl EF 60%.Dobutamine echo Stress test done today by Dr Gambino and was negative 2. Epigastric pain with epigastric nodules.Had CT abdomen. No acute findings in the abdomen or pelvis. Scattered subcentimeter hepatic hypodensities, likely simple cysts. FU Dr Benoit 3. Hypertension.On Norvasc 5 4. Dyslipidemia. 5. Recent right knee injury. DW RN Subjective Subjective No CP . Had stress test. No events. In SR. Still epigastric pain Objective Last 24 Hour Vital Signs Date Time Temp Pulse Resp B/P (MAP) Pulse Ox O2 Delivery O2 Flow Rate FiO2 05/05/18 12:00 98.5 73 20 126/80 (95) 96 05/05/18 11:42 108 05/05/18 09:51 77 16 Room Air 21 05/05/18 08:49 Room Air 05/05/18 08:27 69 124/80 05/05/18 08:00 98.7 69 18 124/80 (95) 97 05/05/18 07:33 68 05/05/18 04:00 63 05/05/18 04:00 97.0 61 20 122/64 (83) 97 05/05/18 00:00 97.2 62 20 120/73 (89) 98 05/05/18 00:00 61 05/04/18 21:00 Room Air 05/04/18 20:54 71 16 Room Air 21 05/04/18 20:00 91 05/04/18 20:00 97.2 75 20 116/68 (84) 99 05/04/18 16:00 70 05/04/18 16:00 98.5 75 18 120/76 (91) 99 Intake and Output 05/04/18 05/05/18 18:59 06:59 Intake Total 840 ml 120 ml Balance 840 ml 120 ml Intake Oral 840 ml 120 ml # Voids 4 2 Laboratory Tests Test 05/05/18 06:30 White Blood Count 6.2 K/UL (4.8-10.8) Red Blood Count 4.17 M/UL (4.20-5.40) L Hemoglobin 13.5 G/DL (12.0-16.0) Hematocrit 38.8 % (37.0-47.0) Mean Corpuscular Volume 93 FL (80-99) Mean Corpuscular Hemoglobin 32.3 PG (27.0-31.0) H Mean Corpuscular Hemoglobin Concent 34.7 G/DL (32.0-36.0) Red Cell Distribution Width 11.2 % (11.6-14.8) L Platelet Count 255 K/UL (150-450) Mean Platelet Volume 6.7 FL (6.5-10.1) Neutrophils (%) (Auto) 53.2 % (45.0-75.0) Lymphocytes (%) (Auto) 35.2 % (20.0-45.0) Monocytes (%) (Auto) 8.4 % (1.0-10.0) Eosinophils (%) (Auto) 1.9 % (0.0-3.0) Basophils (%) (Auto) 1.2 % (0.0-2.0) Erythrocyte Sedimentation Rate 40 MM/HR (0-30) H Sodium Level 141 MMOL/L (136-145) Potassium Level 4.6 MMOL/L (3.5-5.1) Chloride Level 106 MMOL/L (98-107) Carbon Dioxide Level 30 MMOL/L (21-32) Anion Gap 5 mmol/L (5-15) Blood Urea Nitrogen 19 mg/dL (7-18) H Creatinine 0.9 MG/DL (0.55-1.30) Estimat Glomerular Filtration Rate mL/min (>60) Glucose Level 96 MG/DL (74-106) Calcium Level 9.2 MG/DL (8.5-10.1) Phosphorus Level 4.5 MG/DL (2.5-4.9) Magnesium Level 2.2 MG/DL (1.8-2.4) Total Bilirubin 0.6 MG/DL (0.2-1.0) Aspartate Amino Transf (AST/SGOT) 17 U/L (15-37) Alanine Aminotransferase (ALT/SGPT) 24 U/L (12-78) Alkaline Phosphatase 66 U/L (46-116) Troponin I 0.000 ng/mL (0.000-0.056) Total Protein 7.3 G/DL (6.4-8.2) Albumin 3.6 G/DL (3.4-5.0) Globulin 3.7 g/dL Albumin/Globulin Ratio 1.0 (1.0-2.7) Objective HEAD AND NECK: No JVD. LUNGS: Good air entry. No wheezing or rales. HEART: Reveals S1 and S2. Regular rhythm. No gallop. ABDOMEN: Soft, nondistended, and nontender. Epigastric tenderness. There was a nodule felt on the epigastric area. No rebound tenderness. No fluid shift. No ascites. EXTREMITIES: No cyanosis, clubbing, or edema. Right knee was noted to have ecchymosis. NEUROLOGIC: RANCH HELPER II through XII grossly intact. Motor is 5/5 in all extremities. Gait is intact. Jose Luis Ennis MD May 05, 2018 15:23
--- NOTE | 2018-05-05 15:40 | NUR ---
NURSE NOTES: Spoke to Dr. Benoit. Verified CT results. From Dr. Benoit, states patient has GI clearance. In addition, to follow up with the doctor in one/two weeks for possible endoscopy outpatient discussion.
--- NOTE | 2018-05-05 15:50 | NUR ---
NURSE NOTES: Paged Dr. Patrick about discharge orders. Paged Dr. Hartmann about patient requests for signing disability from, requesting doctor as primary, and GI consult request.
[2018-05-05 16:09] VITALS: BP 118/78
--- NOTE | 2018-05-05 17:15 | NUR ---
NURSE NOTES: Spoke to both Dr. Hartmann and Celina. Received discharge orders and for patient to follow up in Dr. Hartmann's office. In addition, for patient to resume home medications.
--- NOTE | 2018-05-05 18:55 | General Progress Note ---
Assessment/Plan Assessment/Plan Assessment - atypical CP - xiphoid TTP - presumed contusion / musculoskeleta Recommendations - d/c planning - Advised to f/u with GI for EGD/Colon (given my card) Subjective Allergies: Coded Allergies: No Known Allergies (Unverified , 05/01/18) Subjective Feels OK no further upper chest pain still with some xiphoid TTP advised patient to have outpatient EGD/Colon Objective Last 24 Hour Vital Signs Date Time Temp Pulse Resp B/P (MAP) Pulse Ox O2 Delivery O2 Flow Rate FiO2 05/05/18 16:17 77 05/05/18 16:09 98.1 85 18 118/78 (91) 98 05/05/18 12:00 98.5 73 20 126/80 (95) 96 05/05/18 11:42 108 05/05/18 09:51 77 16 Room Air 21 05/05/18 08:49 Room Air 05/05/18 08:27 69 124/80 05/05/18 08:00 98.7 69 18 124/80 (95) 97 05/05/18 07:33 68 05/05/18 04:00 63 05/05/18 04:00 97.0 61 20 122/64 (83) 97 05/05/18 00:00 97.2 62 20 120/73 (89) 98 05/05/18 00:00 61 05/04/18 21:00 Room Air 05/04/18 20:54 71 16 Room Air 21 05/04/18 20:00 91 05/04/18 20:00 97.2 75 20 116/68 (84) 99 Intake and Output 05/04/18 05/05/18 19:00 07:00 Intake Total 840 ml 120 ml Balance 840 ml 120 ml Intake Oral 840 ml 120 ml # Voids 4 2 Laboratory Tests 05/05/18 06:30: White Blood Count 6.2, Red Blood Count 4.17L, Hemoglobin 13.5, Hematocrit 38.8, Mean Corpuscular Volume 93, Mean Corpuscular Hemoglobin 32.3H, Mean Corpuscular Hemoglobin Concent 34.7, Red Cell Distribution Width 11.2L, Platelet Count 255, Mean Platelet Volume 6.7, Neutrophils (%) (Auto) 53.2, Lymphocytes (%) (Auto) 35.2, Monocytes (%) (Auto) 8.4, Eosinophils (%) (Auto) 1.9, Basophils (%) (Auto ) 1.2, Erythrocyte Sedimentation Rate 40H, Sodium Level 141, Potassium Level 4.6 , Chloride Level 106, Carbon Dioxide Level 30, Anion Gap 5, Blood Urea Nitrogen 19H, Creatinine 0.9, Estimat Glomerular Filtration Rate , Glucose Level 96, Calcium Level 9.2, Phosphorus Level 4.5, Magnesium Level 2.2, Total Bilirubin 0.6, Aspartate Amino Transf (AST/SGOT) 17, Alanine Aminotransferase (ALT/SGPT) 24, Alkaline Phosphatase 66, Troponin I 0.000, Total Protein 7.3, Albumin 3.6, Globulin 3.7, Albumin/Globulin Ratio 1.0 Height (Feet): 5 Height (Inches): 3.00 Weight (Pounds): 136 Objective WDWN NCAT supple CTA RRR Abd soft ND NT no edema non focal Hector Benoit MD May 05, 2018 18:55
--- NOTE | 2018-05-05 19:04 | NUR ---
Home Discharge: Patient is being discharged. Awake, alert and oriented x 4. Discharge instructions were given. Patient verbalized understanding of discharge instructions. All medical devices such as, heart monitor, IV, and ID band were removed. Patient left via wheelchair with all personal belongings to private vehicle by . Belongings checklist signed and discharge paperwork signed. patient understood to follow up appointment with Dr. Hartmann.
--- NOTE | 2018-05-05 19:13 | Internal Med Progress Note ---
Subjective Date of Service: May 05, 2018 Physician Name Curt Peraza Attending Physician Reynaldo Hartmann MD Current Medications Medications (Trade) Dose Ordered Sig/Sabiha Route PRN Reason Start Time Stop Time Status Last Admin Dose Admin Acetaminophen (Tylenol) 650 mg Q4H PRN ORAL FEVER 05/01/18 16:15 05/31/18 16:14 Albuterol/ Ipratropium (Albuterol/ Ipratropium) 3 ml Q4H PRN HHN Shortness of Breath 05/01/18 16:15 05/06/18 16:14 Amlodipine Besylate (Norvasc) 5 mg DAILY ORAL 05/02/18 09:00 06/01/18 08:59 05/05/18 08:27 Aspirin (ASA) 162 mg DAILY ORAL 05/02/18 09:00 06/01/18 08:59 05/05/18 08:27 Diltiazem HCl (Cardizem) 10 mg Q1H PRN IV heart rate more than 120, 05/01/18 16:15 05/31/18 16:14 Enalaprilat (Vasotec) 2.5 mg Q6H PRN IV sbp more than 160 05/01/18 16:15 05/31/18 16:14 Heparin Sodium (Porcine) (Heparin 5000 units/ml) 5,000 units EVERY 12 HOURS SUBQ 05/01/18 21:00 05/31/18 20:59 Ketorolac Tromethamine (Toradol 30mg) 30 mg Q6H PRN IV moderate pain ( 4-6) 05/01/18 16:15 05/06/18 16:14 Morphine Sulfate (Morphine Sulfate) 2 mg Q4H PRN IVP severe Pain (Pain Scale 7-10) 05/01/18 16:15 05/08/18 16:14 Nitroglycerin (Ntg) 0.4 mg Q5M PRN SL Prn Chest Pain 05/01/18 16:15 05/31/18 16:14 Ondansetron HCl (Zofran) 4 mg Q6H PRN IVP Nausea & Vomiting 05/01/18 16:15 05/31/18 16:14 Pantoprazole (Protonix) 40 mg EVERY 12 HOURS ORAL 05/03/18 09:00 06/02/18 08:59 05/05/18 08:27 Polyethylene Glycol (Miralax) 17 gm DAILYPRN PRN ORAL Constipation 05/01/18 16:15 05/31/18 16:14 Temazepam (Restoril) 15 mg HSPRN PRN ORAL Insomnia 05/01/18 16:15 05/08/18 16:14 Allergies: Coded Allergies: No Known Allergies (Unverified , 05/01/18) ROS Limited/Unobtainable: No Constitutional: Reports: no symptoms HEENT: Reports: no symptoms Cardiovascular: Reports: no symptoms Respiratory: Reports: no symptoms Gastrointestinal/Abdominal: Reports: no symptoms Genitourinary: Reports: no symptoms Neurologic/Psychiatric: Reports: no symptoms Subjective 73 YO F admitted with chest and epigastric pain. Cover for Int Eddie-Dr Hartmann. S /P cardiac stress test on Sat05/05/18 Objective Last Vital Signs Date Time Temp Pulse Resp B/P (MAP) Pulse Ox O2 Delivery O2 Flow Rate FiO2 05/05/18 16:17 77 05/05/18 16:09 98.1 18 118/78 (91) 98 05/05/18 09:51 Room Air 21 Laboratory Tests Test 05/05/18 06:30 White Blood Count 6.2 K/UL (4.8-10.8) Red Blood Count 4.17 M/UL (4.20-5.40) L Hemoglobin 13.5 G/DL (12.0-16.0) Hematocrit 38.8 % (37.0-47.0) Mean Corpuscular Volume 93 FL (80-99) Mean Corpuscular Hemoglobin 32.3 PG (27.0-31.0) H Mean Corpuscular Hemoglobin Concent 34.7 G/DL (32.0-36.0) Red Cell Distribution Width 11.2 % (11.6-14.8) L Platelet Count 255 K/UL (150-450) Mean Platelet Volume 6.7 FL (6.5-10.1) Neutrophils (%) (Auto) 53.2 % (45.0-75.0) Lymphocytes (%) (Auto) 35.2 % (20.0-45.0) Monocytes (%) (Auto) 8.4 % (1.0-10.0) Eosinophils (%) (Auto) 1.9 % (0.0-3.0) Basophils (%) (Auto) 1.2 % (0.0-2.0) Erythrocyte Sedimentation Rate 40 MM/HR (0-30) H Sodium Level 141 MMOL/L (136-145) Potassium Level 4.6 MMOL/L (3.5-5.1) Chloride Level 106 MMOL/L (98-107) Carbon Dioxide Level 30 MMOL/L (21-32) Anion Gap 5 mmol/L (5-15) Blood Urea Nitrogen 19 mg/dL (7-18) H Creatinine 0.9 MG/DL (0.55-1.30) Estimat Glomerular Filtration Rate mL/min (>60) Glucose Level 96 MG/DL (74-106) Calcium Level 9.2 MG/DL (8.5-10.1) Phosphorus Level 4.5 MG/DL (2.5-4.9) Magnesium Level 2.2 MG/DL (1.8-2.4) Total Bilirubin 0.6 MG/DL (0.2-1.0) Aspartate Amino Transf (AST/SGOT) 17 U/L (15-37) Alanine Aminotransferase (ALT/SGPT) 24 U/L (12-78) Alkaline Phosphatase 66 U/L (46-116) Troponin I 0.000 ng/mL (0.000-0.056) Total Protein 7.3 G/DL (6.4-8.2) Albumin 3.6 G/DL (3.4-5.0) Globulin 3.7 g/dL Albumin/Globulin Ratio 1.0 (1.0-2.7) Intake and Output 05/04/18 05/05/18 19:00 07:00 Intake Total 840 ml 120 ml Balance 840 ml 120 ml Intake Oral 840 ml 120 ml # Voids 4 2 Objective PHYSICAL EXAMINATION: GENERAL: The patient is awake and responsive, in no acute distress. HEAD AND NECK: Pupils are reactive to light. Extraocular movements intact. NECK: Supple. No JVD. LUNGS: Good air entry. No wheezing or rales. HEART: Reveals S1 and S2. Regular rhythm. No gallop. ABDOMEN: Soft, nondistended, and nontender. Epigastric tenderness. There was a nodule felt on the epigastric area. No rebound tenderness. No fluid shift. No ascites. EXTREMITIES: No cyanosis, clubbing, or edema. Right knee was noted to have ecchymosis. NEUROLOGIC: [employer] FIELD COORDINATOR II through XII grossly intact. Motor is 5/5 in all extremities. Gait is intact. RECTAL: Refused and deferred. GENITOURINARY: Refused and deferred. PSYCHIATRIC: Mood and affect is intact. Assessment/Plan Assessment/Plan ASSESSMENT: 1. Chest pain, possible acute coronary syndrome. 2. Epigastric pain 3. Hypertension. 4. Dyslipidemia. 5. Recent right knee injury. PLAN: 1. Admit the patient to telemetry. 2. We will follow up with Dr. Patrick from Pulmonary Critical Care, Dr. Hector Benoit from Gastroenterology, Dr. Ennis from Cardiology Electrophysiology. S/P cardiolite stress test on Saturday05/06/18=neg 3. We will follow up with the laboratory. 4. CT scan of the abdomen=No acute findings; follow GI recs=EGD and colonoscopy as outpatient 5. Code status is Full Code. 6. DVT prophylaxis with heparin subcutaneous. 7. We will continue home medication. 8. D/C home today Curt Peraza MD May 05, 2018 19:13
--- NOTE | 2018-05-07 15:11 | Discharge Summary ---
Discharge Summary Discharge Summary _ DATE OF ADMISSION: 05/01/2018 DATE OF DISCHARGE: 05/05/2018 DISCHARGED BY: Dr. Hartmann REASON FOR ADMISSION: 73 years old female with past medical history of hypertension, dyslipidemia, surgical history of appendectomy, , hysterectomy, hemorrhoidectomy, presented to emergency department complaining of chest pain. Chest pain located in retrosternal area and radiated to the jaw. Patient also reported epigastric pain. Pain was present intermittently for 4-5 days , but was getting progressively worse Patient stated that about 2 weeks ago she fell while at work and sustained injury to the right knee. She was seen by work compensation physician in urgent care and was noted to have a chest pain with elevated blood pressure. Subsequently patient was advised to come to the emergency department. Upon evaluation in the ED vital signs were stable. Laboratory workup revealed pro BNP 85, troponin negative, EKG revealed sinus rhythm, no acute ischemic changes, T wave inversion in anterior leads. No leukocytosis, stable hemoglobin and hematocrit. Stable electrolytes and renal parameters. Chest x-ray revealed no acute cardiopulmonary pathology. Shortly after initial evaluation in emergency department patient was admitted to the hospital for further workup for chest pain and epigastric pain, possible acute coronary syndrome versus GI etiology. CONSULTANTS: legal intern Dr. Zayas pulmonary Dr. Patrick GI specialist Dr. Ponce plastic surgery Dr. Burger [facility] COURSE: Patient admitted to telemetry floor. Cardiology , pulmonology and GI consults were requested. Serial troponin were negative. EKG revealed normal sinus rhythm with T wave inversion in precordial leads. Patient was ruled out for acute TX. Echocardiogram revealed preserved ejection fraction of 60%. Dobutamine stress test was nonischemic. Lipid panel was stable. Antiplatelet therapy with aspirin was continued. Blood pressure was managed with calcium channel merlin. Nitroglycerin was on board as needed. Pain management was addressed , and pain was controlled. DVT prophylaxis provided. Supplemental oxygen was on board as needed to keep pulse oximetry above 92%. Pulse oximetry was stable on room air. GI specialist seen and evaluated patient Patient subsequently undergone CT of the abdomen and pelvis, which revealed no acute findings in the abdomen and pelvis. No bowel obstruction or bowel wall thickening. Gallbladder and appendix appeared unremarkable. No obstructive uropathy. Scattered subcentimeter hepatic hypo-densities, likely simple cysts. GI closely followed. Patient likely had atypical chest pain: xiphoid was tender to palpation . Chest pain presumed to be due to contusion and of musculoskeletal origin. Patient was advised to follow-up with GI specialist for EGD and colonoscopy. Symptomatic treatment provided. Bowel regimen instituted. Plastic surgeon seen and evaluated patient for skin check. Recommendation regarding prevention of skin breakdown provided to patient. Patient clinically stabilized Chest pain resolved. Patient was stable for discharge home. FINAL DIAGNOSES: Chest pain with anterior T wave inversion Possible ACS Probably costochondritis Hypertension History of dyslipidemia Recent right knee injury DISCHARGE MEDICATIONS: See Medication Reconciliation list. DISCHARGE INSTRUCTIONS: Patient was discharged home . Follow up with primary care provider in one week. I have been assigned to dictate discharge summary for this account. I was not involved in the patient's management. Laly Kumar NP May 07, 2018 15:11
== END 2018-05-05 19:10 | disposition home or self-care (01) | DRG 311 ==
LOC: EDBD 11:43 → EMR 12:18 → 2E 15:26 → EDBEDREQ 15:48 → 2E 17:52
DX: I24.9 Acute ischemic heart disease, unspecified (principal); I10 Essential (primary) hypertension; E78.5 Hyperlipidemia, unspecified; M94.0 Chondrocostal junction syndrome [Tietze]; R10.13 Epigastric pain; Z91.81 History of falling; S20.219A Contusion of unspecified front wall of thorax, initial encounter; X58.XXXA Exposure to other specified factors, initial encounter; K21.9 Gastro-esophageal reflux disease without esophagitis; Z79.82 Long term (current) use of aspirin
CPT/HCPCS: 36415; 71045; 74177; 80048; 80053; 80061; 82550; 82553; 83690; 83735; 83880; 84100; 84443; 84484; 85025; 85610; 85651; 85730; 86140; 93005; 93017; 93306; 93350; 94664; 99285; J8499